=== PATIENT | female | born 1985 | race Caucasian/White ===

== ENCOUNTER 2016-10-24 22:56 | Emergency (ER) | payer MEDICAID ==
[~2016-10-24] VITALS: Ht 162.6 cm; Wt 72.0 kg
[~2016-10-24 22:56] MED LIST: IBUP800T23 PO; ROBA750T PO
[2016-10-24 22:58] VITALS: BP 139/76; PULSE 97; RESP 16; TEMP 98; O2SAT 99
--- NOTE | 2016-10-24 23:15 | PD ---
HPI . Sunburn Chief Complaint: Skin Problem Time Seen by Provider: 23:08 Travel History International Travel<30 days: No Contact w/Intl Traveler<30days: No Traveled to known affect area: No History of Present Illness HPI Patient presents with sunburn on her back. She rates her pain as 10/10. Pain has been unrelieved by aloe gel and cool compresses. PFSH Past Medical History Anemia: Yes Asthma: Yes Depression: Yes Cardiovascular Problems: Yes (ANEMIC) Diminished Hearing: No Immunizations Current: Yes Tetanus Vaccination: Unknown Influenza Vaccination: Yes ?: Not LMP: 10/10/16 : 2 Para: 2 Tubal Ligation: Yes Past Surgical History Appendectomy: Yes (04/2014) Section: Yes (X 2) Gynecologic Surgery: Yes (LEEP) Social History Alcohol Use: No Tobacco Use: Yes (1/2 PPD) Substance Use: No Allergies-Medications (Allergen,Severity, Reaction): Coded Allergies: No Known Allergies (Unverified , 10/24/16) Reported Meds & Prescriptions Reported Meds & Active Scripts Active No Active Prescriptions or Reported Medications Review of Systems Except as stated in HPI: all other systems reviewed are Neg Musculoskeletal: Positive: Pain (in her left low back) Skin: Positive Other (sunburn) Physical Exam Narrative GENERAL: Awake and alert and in no acute distress. SKIN: Warm and dry. She has some redness and of her back. There is no blistering. There is no necrotic skin. HEAD: Atraumatic. Normocephalic. EYES: Pupils equal and round. NECK: Trachea midline. CARDIOVASCULAR: Regular rate and rhythm. RESPIRATORY: No accessory muscle use. MUSCULOSKELETAL: No obvious deformities. No edema. She has tenderness to palpation superior to her left SI joint. NEUROLOGICAL: Awake and alert. No obvious cranial nerve deficits. Motor grossly within normal limits. Normal speech. PSYCHIATRIC: Appropriate mood and affect; insight and judgment normal. Data Data Last Documented VS Vital Signs Date Time Temp Pulse Resp B/P Pulse Ox O2 Delivery O2 Flow Rate FiO2 10/24/16 22:58 98.0 97 16 139/76 99 Room Air MDM Medical Decision Making Medical Screen Exam Complete: Yes Emergency Medical Condition: Yes Differential Diagnosis Differential diagnosis includes simple sunburn, second degree burn, wound infection Narrative Course Patient presents 2 days status post a sunburn to her back. Skin is intact. No evidence of infection. Diagnosis Primary Impression: Sunburn Additional Instructions: Benadryl, 2 every 4 hours if needed for itching. Ibuprofen, 600-800 mg every 6 hours as needed for pain. Cool compresses, showers, tub soaks. Continue aloe gel. Hydrocortisone mixed with lotion is sometimes helpful when it starts itching. Scripts No Active Prescriptions or Reported Meds Disposition: 01 DISCHARGE HOME Condition: Stable Nemo Puente MD October 24, 2016 23:15
== END 2016-10-24 23:25 | disposition home or self-care (01) ==
LOC: NEPD 22:56
DX: L55.9 Sunburn, unspecified (principal); F17.210 Nicotine dependence, cigarettes, uncomplicated
CPT/HCPCS: 99282

== ENCOUNTER 2016-10-31 18:51 | Emergency (ER) | payer MEDICAID, OTHER ==
[~2016-10-31] VITALS: Ht 157.5 cm; Wt 81.1 kg
[2016-10-31 18:58] VITALS: BP 114/74; PULSE 85; RESP 16; TEMP 98.3; O2SAT 99
[2016-10-31] MEDS ORDERED: ROBA500T PO (19:54)
[2016-10-31] MEDS ORDERED: IBUP800T23 PO (19:54)
--- NOTE | 2016-10-31 19:55 | PD ---
HPI Chief Complaint: Pain: Acute or Chronic Time Seen by Provider: 19:25 Travel History International Travel<30 days: No Contact w/Intl Traveler<30days: No Traveled to known affect area: No History of Present Illness HPI 30-year-old female presents emergency department for right-sided lower back pain for one month. Patient denies injury or trauma. She reports the pain as being spasming in nature, nonradiating, worse with movement and relieved with rest 6 out of 10 severity. She denies lower extremity weakness, incontinence, fever, chills, abdominal pain, urinary frequency/urgency/dysuria. He denies any past medical history. She reports that she went to a chiropractor for this pain and was adjusted and had little relief. [facility] Past Medical History Medical History: Denies Significant Hx Anemia: Yes Asthma: Yes Depression: Yes Cardiovascular Problems: Yes (ANEMIC) Diminished Hearing: No Immunizations Current: Yes Tetanus Vaccination: > 5 Years Influenza Vaccination: No ?: Not LMP: OCTOBER 10 : 2 Para: 2 Tubal Ligation: Yes Past Surgical History Appendectomy: Yes (04/2014) Section: Yes (X 2) Gynecologic Surgery: Yes (LEEP) Social History Alcohol Use: No Tobacco Use: Yes (/ PPD) Substance Use: No Allergies-Medications (Allergen,Severity, Reaction): Coded Allergies: No Known Allergies (Unverified , 10/31/16) Reported Meds & Prescriptions Reported Meds & Active Scripts Active No Active Prescriptions or Reported Medications Review of Systems Except as stated in HPI: all other systems reviewed are Neg Physical Exam Narrative GENERAL: Alert, well-nourished well-appearing female. In no acute distress SKIN: Focused skin assessment warm/dry. HEAD: Atraumatic. Normocephalic. EYES: Pupils equal and round. No scleral icterus. No injection or drainage. ENT: No nasal bleeding or discharge. Mucous membranes pink and moist. NECK: Trachea midline. No JVD. CARDIOVASCULAR: Regular rate and rhythm. No murmur appreciated. RESPIRATORY: No accessory muscle use. Clear to auscultation. Breath sounds equal bilaterally. GASTROINTESTINAL: Abdomen soft, non-tender, nondistended. Hepatic and splenic margins not palpable. MUSCULOSKELETAL: No obvious deformities. No clubbing. No cyanosis. No edema. 2+ DTRs and lower extremities. Normal dorsi flexion and plantarflexion. BACK: No midline spine tenderness. Muscle spasm and tenderness of left sided paraspinous muscles in the lumbar region. NEUROLOGICAL: Awake and alert. No obvious cranial nerve deficits. Motor grossly within normal limits. Normal speech. PSYCHIATRIC: Appropriate mood and affect; insight and judgment normal. Data Data Last Documented VS Vital Signs Date Time Temp Pulse Resp B/P Pulse Ox O2 Delivery O2 Flow Rate FiO2 10/31/16 19:17 20 10/31/16 18:58 98.3 85 114/74 99 MDM Medical Decision Making Medical Screen Exam Complete: Yes Emergency Medical Condition: Yes Differential Diagnosis Lumbar sprain, herniated disc, paraspinous muscle spasms Narrative Course 30-year-old female presents emergency department for evaluation of left low back pain 1 month. She denies injury or trauma. She denies numbness tingling or lower extremities, incontinence, fever or chills, urinary . Her physical exam is consistent with a lumbar strain she has paraspinous muscle spasming on the left lumbar region. Diagnosis Primary Impression: Lumbar strain Qualified Code: S39.012A - Lumbar strain, initial encounter Referrals: Primary Care Physician Patient Instructions: General Instructions, Low Back Strain (ED) Scripts Methocarbamol (Robaxin)500 Mg [id number] Mg PO TID PRN (MUSCLE SPASM) #12 TAB Prov:Karly Mills 10/31/16 Ibuprofen 800 Mg [id number] Mg PO Q8H PRN (Pain/Inflammation) #30 TAB Prov:Karly Mills 10/31/16 Disposition: 01 DISCHARGE HOME Condition: Stable Karly Mills October 31, 2016 19:55
== END 2016-10-31 19:59 | disposition home or self-care (01) ==
LOC: PHEFT 18:51
DX: S39.012A Strain of muscle, fascia and tendon of lower back, initial encounter (principal); F17.200 Nicotine dependence, unspecified, uncomplicated; D64.9 Anemia, unspecified; J45.909 Unspecified asthma, uncomplicated; F32.9 Major depressive disorder, single episode, unspecified; X58.XXXA Exposure to other specified factors, initial encounter
CPT/HCPCS: 99283

== ENCOUNTER 2016-12-04 17:08 | Emergency (ER) | payer MEDICAID ==
[~2016-12-04] VITALS: Ht 162.6 cm; Wt 77.5 kg
[~2016-12-04 17:08] MED LIST changes: +ROBA500T PO; -ROBA750T PO
[2016-12-04 17:23] VITALS: BP 130/59; PULSE 72; RESP 18; TEMP 98.4; O2SAT 100
[2016-12-04 18:26] LABS: BASOPHIL # 0.1 TH/MM3 (0-0.2); EOSINOPHIL # 0.4 TH/MM3 (0-0.4); EOSINOPHIL % 4.4 % (0.0-4.0); HEMATOCRIT 32.6 % (35.0-46.0); HEMO FLAGS DIFF FINAL; LYMPH % 27.5 % (9.0-44.0); LYMPHOCYTE # 2.5 TH/MM3 (1.0-4.8); MEAN CELL VOLUME 75.8 FL (80.0-100.0); MEAN CORPUSCULAR HEMOGLOBIN 23.8 PG (27.0-34.0); MEAN CORPUSCULAR HGB CONC 31.4 % (32.0-36.0); MONO % 11.4 % (0.0-8.0); NEUT % 55.7 % (16.0-70.0); PLATELET COUNT 328 TH/MM3 (150-450); RED CELL DISTRIBUTION WIDTH 15.9 % (11.6-17.2); WHITE BLOOD COUNT 9.1 TH/MM3 (4.0-11.0)
--- NOTE | 2016-12-04 18:26 | PD ---
HPI Chief Complaint: Numbness/Tingling Time Seen by Provider: 17:28 Travel History International Travel<30 days: No Contact w/Intl Traveler<30days: No Traveled to known affect area: No History of Present Illness HPI 31-year-old female came to the emergency room with history of right sided tingling and numbness since 8:30 this morning. Patient says that her right upper extremity and right lower extremity feel tingling, numb and heavy. She has never had this before. No history of headache, syncopal episode. No history of chest pain. She is otherwise a healthy person. Vital signs are stable. She does not appear to be in any significant distress. She is here with her and 2 children. Upon asking she said there is no way she could be since she has had tubal ligation. She is a smoker. FORMERLY [facility], 1928–[facility] Past Medical History Narrative Medical List of her past medical, surgical, social and family history was reviewed from the nursing note. Anemia: Yes Asthma: Yes Depression: Yes Cardiovascular Problems: Yes (ANEMIC) Diminished Hearing: No Respiratory: Yes (ASTHMA) Immunizations Current: Yes Tetanus Vaccination: > 5 Years ?: Not LMP: 11/10/2016 : 2 Para: 2 Tubal Ligation: Yes Past Surgical History Appendectomy: Yes (04/2014) Section: Yes (X 2) Gynecologic Surgery: Yes (LEEP) Social History Alcohol Use: No Tobacco Use: Yes (1/2 PPD) Substance Use: No Allergies-Medications (Allergen,Severity, Reaction): Coded Allergies: No Known Allergies (Unverified , 12/04/16) Comments No known drug allergies. Reported Meds & Prescriptions Reported Meds & Active Scripts Active Robaxin (Methocarbamol) 500 Mg Tab 500 Mg PO TID PRN Ibuprofen 800 Mg Tab 800 Mg PO Q8H PRN Narrative Medication List of her home medications reviewed from the nursing note. Review of Systems Except as stated in HPI: all other systems reviewed are Neg Physical Exam Narrative GENERAL: Awake, alert, no obvious distress SKIN: Focused skin assessment warm/dry. HEAD: Atraumatic. Normocephalic. EYES: Pupils equal and round. No scleral icterus. No injection or drainage. ENT: No nasal bleeding or discharge. Mucous membranes pink and moist. NECK: Trachea midline. No JVD. CARDIOVASCULAR: Regular rate and rhythm. No murmur appreciated. RESPIRATORY: No accessory muscle use. Clear to auscultation. Breath sounds equal bilaterally. GASTROINTESTINAL: Abdomen soft, non-tender, nondistended. Hepatic and splenic margins not palpable. MUSCULOSKELETAL: No obvious deformities. No clubbing. No cyanosis. No edema. NEUROLOGICAL: Awake and alert. No obvious cranial nerve deficits. Motor grossly within normal limits. Normal speech. NIH stroke score is 0 PSYCHIATRIC: Appropriate mood and affect; insight and judgment normal. Data Data Last Documented VS Orders Ct Brain W/O Iv Contrast(Rout) (12/04/16 ) Mri Brain W&W/O Contrast (12/04/16 ) Mri C Spine W&W/O Contrast (12/04/16 ) Mra Brain W/O Contrast (Cow) (12/04/16 ) Complete Blood Count With Diff (12/04/16 17:33) Basic Metabolic Panel (Bmp) (12/04/16 17:33) Gadodiamide Pf Inj (Omniscan Pf Inj) (12/04/16 19:59) Labs MDM Medical Decision Making Medical Screen Exam Complete: Yes Emergency Medical Condition: Yes Medical Record Reviewed: Yes Differential Diagnosis CVA, spinal CVA, conversion disorder Narrative Course 6:26 PM I ordered a CT scan of her head and an MRI and MRA. Awaiting for the images to be done and resulted. 6:42 PM the test results of back and within acceptable limits. Awaiting for the imaging to be completed. Case will be signed over to the oncoming ER physician at 7 PM. Procedures EKG Prior to Arrival: Yadi Macedo MD Dec 04, 2016 18:26 Mean Corpuscular Volume 75.8 FL Mean Corpuscular Hemoglobin 23.8 PG Mean Corpuscular Hemoglobin 31.4 % Concent Red Cell Distribution Width 15.9 % Platelet Count 328 TH/MM3 Mean Platelet Volume 7.4 FL Neutrophils (%) (Auto) 55.7 % Lymphocytes (%) (Auto) 27.5 % Monocytes (%) (Auto) 11.4 % Eosinophils (%) (Auto) 4.4 % Basophils (%) (Auto) 1.0 % Neutrophils # (Auto) 5.0 TH/MM3 Lymphocytes # (Auto) 2.5 TH/MM3 Monocytes # (Auto) 1.0 TH/MM3 Eosinophils # (Auto) 0.4 TH/MM3 Basophils # (Auto) 0.1 TH/MM3 CBC Comment DIFF FINAL Differential Comment Sodium Level 141 MEQ/L Potassium Level 4.2 MEQ/L Chloride Level 109 MEQ/L Carbon Dioxide Level 27.6 MEQ/L Anion Gap 4 MEQ/L Blood Urea Nitrogen 13 MG/DL Creatinine 0.79 MG/DL Estimat Glomerular Filtration 84 ML/MIN Rate Random Glucose 84 MG/DL Calcium Level 8.6 MG/DL MDM Medical Decision Making Medical Screen Exam Complete: Yes Emergency Medical Condition: Yes Medical Record Reviewed: Yes Differential Diagnosis CVA, spinal CVA, conversion disorder Narrative Course 6:26 PM I ordered a CT scan of her head and an MRI and MRA. Awaiting for the images to be done and resulted. 6:42 PM the test results of back and within acceptable limits. Awaiting for the imaging to be completed. Case will be signed over to the oncoming ER physician at 7 PM. Procedures EKG Prior to Arrival: No Yadi Marley MD Dec 04, 2016 18:26 Yadi Marley MD Dec 04, 2016 18:26
[2016-12-04 18:40] LABS: BICARBONATE 27.6 MEQ/L (21.0-32.0); POTASSIUM 4.2 MEQ/L (3.5-5.1)
--- NOTE | 2016-12-04 19:14 | RADRPT ---
EXAM DATE/TIME: 12/04/2016 18:15 [facility] COMPARISON: CT BRAIN W/O CONTRAST, May 18, 2016, 18:10. INDICATIONS : Tingling left and foot with swelling. RADIATION DOSE: 31.74 CTDIvol (mGy) MEDICAL HISTORY : Cardiovascular disease. SURGICAL HISTORY : Appendectomy. Tubal ligation. ENCOUNTER: Initial ACUITY: 1 day PAIN SCALE: 0/10 LOCATION: cranial TECHNIQUE: Multiple contiguous axial images were obtained of the head. Using automated exposure control and adj ustment of the mA and/or kV according to patient size, radiation dose was kept as low as reasonably a chievable to obtain optimal diagnostic quality images. DICOM format image data is available electro nically for review and comparison. FINDINGS: CEREBRUM: The ventricles are normal for age. No evidence of midline shift, mass lesion, hemorrhage or acute in farction. No extra-axial fluid collections are seen. POSTERIOR FOSSA: The cerebellum and brainstem are intact. The 4th ventricle is midline. The cerebellopontine angle i s unremarkable. EXTRACRANIAL: The visualized portion of the orbits is intact. SKULL: The calvaria is intact. No evidence of skull fracture. CONCLUSION: No acute findings. Negative exam. Steven Staley MD on December 04, 2016 at 19:10 Board Certified Radiologist. This report was verified electronically.
--- NOTE | 2016-12-04 19:40 | PD ---
Physical Exam Narrative General: The patient is a well-developed well-nourished female in no acute distress. Head and Neck exam: Head is normocephalic atraumatic. Eyes: EOMI, pupils are equal round and reactive to light. Nose: Midline septum with pink mucous membranes Mouth: Dentition unremarkable. Moist mucus membranes. Posterior oropharynx is not erythematous. No tonsillar hypertrophy. Uvula midline. Airway patent. Neck: No palpable lymphadenopathy. No nuchal rigidity. No thyromegaly. Cardiovascular: Regular rate and rhythm without murmurs, gallops, or rubs. No pulse deficit to the extremities. Lungs: Clear to auscultation bilaterally. No wheezes, rhonchi, or rales. Abdomen: Soft, without tenderness to palpation in all 4 quadrants of the abdomen. No guarding, rebound, or rigidity. Negative [place] sign. Extremities: No clubbing, cyanosis, or edema. 2+ pulses in all 4 extremities. Back: No spinous process tenderness to palpation. No costovertebral angle tenderness to palpation. Neurologic Exam: Cranial nerves 2-12 were intact on exam. Strength is 5/5 in all 4 extremities. No sensory deficits noted. Skin Exam: No rash noted. Intact skin that is warm and dry. Data Data Last Documented VS Vital Signs Date Time Temp Pulse Resp B/P Pulse Ox O2 Delivery O2 Flow Rate FiO2 12/04/16 20:37 75 16 119/83 99 Room Air 12/04/16 17:[address] Brain W/O Iv Contrast(Rout) (12/04/16 ) Mri Brain W&W/O Contrast (12/04/16 ) Mri C Spine W&W/O Contrast (12/04/16 ) Mra Brain W/O Contrast (Cow) (12/04/16 ) Complete Blood Count With Diff (12/04/16 17:33) Basic Metabolic Panel (Bmp) (12/04/16 17:33) Gadodiamide Pf Inj (Omniscan Pf Inj) (12/04/16 19:59) Labs Laboratory Tests Test 12/04/16 17:45 White Blood Count 9.1 TH/MM3 Red Blood Count 4.30 MIL/MM3 Hemoglobin 10.2 GM/DL Hematocrit 32.6 % Mean Corpuscular Volume 75.8 FL Mean Corpuscular Hemoglobin 23.8 PG Mean Corpuscular Hemoglobin 31.4 % Concent Red Cell Distribution Width 15.9 % Platelet Count 328 TH/MM3 Mean Platelet Volume 7.4 FL Neutrophils (%) (Auto) 55.7 % Lymphocytes (%) (Auto) 27.5 % Monocytes (%) (Auto) 11.4 % Eosinophils (%) (Auto) 4.4 % Basophils (%) (Auto) 1.0 % Neutrophils # (Auto) 5.0 TH/MM3 Lymphocytes # (Auto) 2.5 TH/MM3 Monocytes # (Auto) 1.0 TH/MM3 Eosinophils # (Auto) 0.4 TH/MM3 Basophils # (Auto) 0.1 TH/MM3 CBC Comment DIFF FINAL Differential Comment Sodium Level 141 MEQ/L Potassium Level 4.2 MEQ/L Chloride Level 109 MEQ/L Carbon Dioxide Level 27.6 MEQ/L Anion Gap 4 MEQ/L Blood Urea Nitrogen 13 MG/DL Creatinine 0.79 MG/DL Estimat Glomerular Filtration 84 ML/MIN Rate Random Glucose 84 MG/DL Calcium Level 8.6 MG/DL [facility] Medical Record Reviewed: Yes Supervised Visit with GRACIELA: No Interpretation(s) Last Impressions Head Magnetic Resonance Angiography 12/04/16 Signed Impressions: Service Date/Time: Sunday, December 04, 2016 19:27 - CONCLUSION: Negative MRA of the [place] of [place]. Steven Staley MD Head CT 12/04/16 Signed Impressions: Service Date/Time: Sunday, December 04, 2016 18:15 - CONCLUSION: No acute findings. Negative exam. Steven Staley MD Cervical Spine MRI 12/04/16 Signed Impressions: Service Date/Time: Sunday, December 04, 2016 19:27 - CONCLUSION: Negative MRI of the cervical spine with and without contrast. Steven Staley MD Brain MRI 12/04/16 Signed Impressions: Service Date/Time: Sunday, December 04, 2016 19:27 - CONCLUSION: Negative MRI of the brain with and without contrast. Steven Staley MD Differential Diagnosis Cerebrovascular accident, versus multiple sclerosis, versus neuropathy, versus radiculopathy, versus intracranial mass Narrative Course During the course of the patients emergency department visit, the patients history, examination, and differential diagnosis were reviewed with the patient. The patient had IV access obtained and blood work sent for analysis. The patient was placed on a quality assurance monitor with oximetry and blood pressure monitoring. The patient was initially evaluated by Dr. Marley. Please see her complete history and physical. The patients laboratory studies were reviewed and remarkable for a CBC that shows a white count of 9.1, hemoglobin 10.2, platelets 328 with monocytes 11.4, basic metabolic profile is remarkable for chloride of 109, anion gap 4, GFR of 84, CT scan of the brain shows no acute abnormality. MRI of the brain is pending. The patient's MRA of the brain shows no acute abnormality. MRI of the brain showed no acute abnormality with and without contrast. Cervical spine MRI showed a negative MRI of the cervical spine with and without contrast. The patient is instructed to follow-up with a neurologist as an outpatient for further evaluation for possible peripheral neuropathy. The patient is resting comfortably and feels better, is alert and in no distress. The patients results and examination findings were discussed with the patient. The repeat examination is unremarkable and benign. The history, exam, diagnostic testing, and current condition do not suggest any significant pathology to warrant further testing, continued ED treatment, admission, or surgical evaluation at this point. The vital signs have been stable. The patient does not have uncontrollable pain, intractable vomiting, or other significant symptoms. The patient's condition is stable and appropriate for discharge. The patient will pursue further outpatient evaluation with a primary care physician or other designated or consulting physician as indicated in the discharge instructions. The patient expressed understanding and was agreeable with this plan. Diagnosis Primary Impression: Paresthesias Referrals: Zack Man MD call for appointment Patient Instructions: General Instructions, Paresthesia (ED) Med/Other Pt SpecificInfo: No Change to Meds Disposition: 01 DISCHARGE HOME Condition: Stable Eloina Huddleston MD Dec 04, 2016 19:40
[2016-12-04] MEDS ORDERED: GADODIAMIDE PF 287 MG/ML 5 ML VIAL (for RAD MRI) IV ONE (19:59)
--- NOTE | 2016-12-04 20:02 | RADRPT ---
EXAM DATE/TIME: 12/04/2016 19:27 [facility] COMPARISON: No previous studies available for comparison. INDICATIONS : CVA. MEDICAL HISTORY : None. SURGICAL HISTORY : Appendectomy. section. Tubal ligation. ENCOUNTER: Initial ACUITY: 1 day PAIN SCORE: 2/10 LOCATION: Right side swelling Please note a normal MRA of the brain does not entirely exclude the possibility of a small aneurysm, nor the possibility of distal intracranial vessel disease. TECHNIQUE: 3D time of flight MRA was performed. Source images, multiplanar STS MIP, and 3D volume MIP reconstru ctions were reviewed. FINDINGS: There is excellent visualization of the major intracranial arteries out to the second-order branch ve ssels. There is no evidence for aneurysm, vessel truncation or stenosis, and no evidence for vascula r malformation. Flow is seen in the anterior communicating artery and the left PCOM. CONCLUSION: Negative MRA of the [place] of [place]. Steven Staley MD on December 04, 2016 at 19:58 Board Certified Radiologist. This report was verified electronically.
--- NOTE | 2016-12-04 20:36 | RADRPT ---
EXAM DATE/TIME: 12/04/2016 19:27 [facility] COMPARISON: No previous studies available for comparison. INDICATIONS : CVA & MS CONTRAST: 15 cc Omniscan (gadodiamide) IV MEDICAL HISTORY : None. SURGICAL HISTORY : Tubal ligation. section. Appendectomy. ENCOUNTER: Initial ACUITY: 1 day PAIN SCORE: 2/10 LOCATION: Right side swelling TECHNIQUE: Multiplanar, multisequence MRI of the brain was performed both prior to and following the administrat ion of paramagnetic contrast. FINDINGS: CEREBRUM: The ventricles are normal for age. No evidence of midline shift, mass lesion, hemorrhage or acute in farction. No extraaxial fluid collections are seen. The pituitary gland and suprasellar cistern are normal in configuration. WHITE MATTER: No significant signal abnormalities are seen in the white matter. POSTERIOR FOSSA: The cerebellum and brainstem are intact. The 4th ventricle is midline. The cerebellopontine angle is unremarkable. The cerebellar tonsils are normal in position. DIFFUSION IMAGING: No focal areas of restricted diffusion are seen. No evidence of acute infarction. EXTRACRANIAL: The visualized portions of the orbits and paranasal sinuses are unremarkable. POST-CONTRAST: No abnormal areas of parenchymal or dural enhancement. No evidence of blood-brain barrier breakdown. CONCLUSION: Negative MRI of the brain with and without contrast. Steven Staley MD on December 04, 2016 at 20:27 Board Certified Radiologist. This report was verified electronically.
[2016-12-04 20:37] VITALS: BP 119/83; PULSE 75; RESP 16; O2SAT 99
--- NOTE | 2016-12-04 20:37 | RADRPT ---
EXAM DATE/TIME: 12/04/2016 19:27 [facility] COMPARISON: No previous studies available for comparison. INDICATIONS : MS CONTRAST: 15 cc Omniscan (gadodiamide) IV MEDICAL HISTORY : None. SURGICAL HISTORY : Appendectomy. section. Tubal ligation. ENCOUNTER: Initial ACUITY: 1 day PAIN SCORE: 2/10 LOCATION: Right side swelling TECHNIQUE: Multiplanar, multisequence MRI examination of the cervical spine was performed. FINDINGS: VERTEBRAE: Normal vertebral body height. Homogeneous marrow signal. ALIGNMENT: No evidence of subluxation. CORD: Normal configuration and signal. POST FOSSA: The cerebellar tonsils are normal in position. POST-CONTRAST: No abnormal areas of enhancement are seen in the cervical cord or epidural space. C2-C3: The thecal sac has a normal configuration. There is no evidence of disc herniation or spinal canal stenosis. The neural foramina are patent bilaterally. C3-C4: The thecal sac has a normal configuration. There is no evidence of disc herniation or spinal canal s tenosis. The neural foramina are patent bilaterally. C4-C5: The thecal sac has a normal configuration. There is no evidence of disc herniation or spinal canal s tenosis. The neural foramina are patent bilaterally. C5-C6: The thecal sac has a normal configuration. There is no evidence of disc herniation or spinal canal s tenosis. The neural foramina are patent bilaterally. C6-C7: The thecal sac has a normal configuration. There is no evidence of disc herniation or spinal canal s tenosis. The neural foramina are patent bilaterally. C7-T1: The thecal sac has a normal configuration. There is no evidence of disc herniation or spinal canal s tenosis. The neural foramina are patent bilaterally. CONCLUSION: Negative MRI of the cervical spine with and without contrast. Steven Staley MD on December 04, 2016 at 20:33 Board Certified Radiologist. This report was verified electronically.
== END 2016-12-04 21:06 | disposition home or self-care (01) ==
LOC: NEPC 17:08
DX: R20.2 Paresthesia of skin (principal); F17.210 Nicotine dependence, cigarettes, uncomplicated
CPT/HCPCS: 70450; 70544; 70553; 72156; 80048; 85025; 99284; A9579

== ENCOUNTER 2017-02-17 14:33 | Emergency (ER) | payer MEDICAID ==
[~2017-02-17] VITALS: Ht 157.5 cm; Wt 80.0 kg
[2017-02-17 14:40] VITALS: BP 122/55; PULSE 77; RESP 16; TEMP 98.3; O2SAT 96
[2017-02-17] MEDS ORDERED: VENTAER INH (18:09)
[2017-02-17] MEDS ORDERED: IBUP800T23 PO (18:27)
[2017-02-17] MEDS ORDERED: ROBA500T PO (18:27)
[2017-02-17] MEDS ORDERED: TRAM50TA PO (18:27)
--- NOTE | 2017-02-17 18:32 | PD ---
HPI Chief Complaint: Musculoskeletal Complaint Time Seen by Provider: 18:22 Travel History International Travel<30 days: No Contact w/Intl Traveler<30days: No Traveled to known affect area: No History of Present Illness HPI 31-year-old female presents to the emergency Department with left shoulder pain. Patient states she was swimming in the ocean yesterday and injured her left shoulder with mild discomfort yesterday. Patient states over the evening hours it got progressively worse and when she woke up this morning she could barely move her left shoulder. Patient went to work, but had to leave early secondary to increasing pain. Pain is currently an 8 out of 10. Pain is worse with movement. She denies numbness, tingling, or weakness. She has no other injury. She has no known drug allergies. PFSH Past Medical History Anemia: Yes Asthma: Yes Depression: Yes Cardiovascular Problems: Yes (ANEMIC) Diminished Hearing: No Respiratory: Yes (ASTHMA) Immunizations Current: Yes Tetanus Vaccination: Unknown Influenza Vaccination: No ?: Not LMP: 02/05/2017 : 2 Para: 2 Tubal Ligation: Yes Past Surgical History Appendectomy: Yes (04/2014) Section: Yes (X 2) Gynecologic Surgery: Yes (LEEP) Social History Alcohol Use: No Tobacco Use: Yes (/ PPD) Substance Use: No Allergies-Medications (Allergen,Severity, Reaction): Coded Allergies: No Known Allergies (Unverified , 02/17/17) Reported Meds & Prescriptions Reported Meds & Active Scripts Active Tramadol (Tramadol HCl) 50 Mg Tab 50 Mg PO Q6H PRN Ibuprofen 800 Mg Tab 800 Mg PO Q8H PRN Robaxin (Methocarbamol) 500 Mg Tab 500 Mg PO TID PRN Reported Ventolin Hfa 18 GM Inh (Albuterol Sulfate) 90 Mcg/Act Aer 2 Puff INH Q4-6H PRN Review of Systems Except as stated in HPI: all other systems reviewed are Neg General / Constitutional: No: Fever Eyes: No: Visual changes HENT: No: Headaches Cardiovascular: No: Chest Pain or Discomfort Respiratory: No: Shortness of Breath Gastrointestinal: No: Abdominal Pain Genitourinary: No: Dysuria Musculoskeletal: Positive: Myalgias, Arthralgias, Limited ROM, Pain (see history of present illness.) Skin: No Rash Neurologic: No: Weakness Psychiatric: No: Depression Endocrine: No: Polydipsia Hematologic/Lymphatic: No: Easy Bruising Physical Exam Narrative GENERAL: Patient appears in mild to moderate distress. SKIN: Warm and dry. Normal color. Normal turgor. No signs of trauma. No rash. HEAD: Atraumatic. Normocephalic. EYES: Pupils equal and round. No scleral icterus. No injection or drainage. ENT: No nasal bleeding or discharge. Mucous membranes pink and moist. Pharynx is clear. Airway is patent NECK: Trachea midline. No bony step-off or tenderness. Range of motion is fully supple. CARDIOVASCULAR: Regular rate and rhythm. RESPIRATORY: No accessory muscle use. Clear to auscultation. Breath sounds equal bilaterally. GASTROINTESTINAL: Abdomen soft, non-tender, nondistended. Hepatic and splenic margins not palpable. MUSCULOSKELETAL: Extremities without clubbing, cyanosis, or edema. No obvious deformities. Patient has soft tissue tenderness along the left trapezius and posterior and anterior deltoid region. Motion is limited secondary to pain. There is no obvious laxity or weakness. NEUROLOGICAL: Awake and alert. No obvious cranial nerve deficits. Motor grossly within normal limits. Five out of 5 muscle strength in the arms and legs. Normal speech. PSYCHIATRIC: Appropriate mood and affect; insight and judgment normal. Data Data Last Documented VS Vital Signs Date Time Temp Pulse Resp B/P (MAP) Pulse Ox O2 Delivery O2 Flow Rate FiO2 02/17/17 14:40 98.3 77 16 122/55 (77) 96 Room Air MDM Medical Decision Making Medical Screen Exam Complete: Yes Emergency Medical Condition: Yes Differential Diagnosis Left shoulder strain. Tendinitis. Bursitis. Muscle spasm. Narrative Course Patient is treated with Robaxin 500 mg 3 times a day #12. Patient is given ibuprofen 800 mg 3 times daily with food #30. Patient is given tramadol 50 mg one every 6 hours when necessary #12. She is to use heat followed by ice and gentle stretching as discussed. Work note is given for the next 2 days. Patient should follow up if symptoms are not improving or worsening as needed. Diagnosis Primary Impression: Strain of left shoulder Qualified Codes: S46.912A - Strain of unspecified muscle, fascia and tendon at shoulder and upper arm level, left arm, initial encounter Referrals: Primary Care Physician Patient Instructions: Exercises for Internal and External Shoulder Rotation (ED ), Exercises for Shoulder Abduction and Adduction (ED), General Instructions, Rotator Cuff Injury (ED), Shoulder Sprain (ED) Departure Forms: Work Release Enter return to work date: Feb 20, 2017 Additional Instructions: Patient is treated with Robaxin 500 mg 3 times a day #12. Patient is given ibuprofen 800 mg 3 times daily with food #30. Patient is given tramadol 50 mg one every 6 hours when necessary #12. She is to use heat followed by ice and gentle stretching as discussed. Work note is given for the next 2 days. Patient should follow up if symptoms are not improving or worsening as needed. Scripts Tramadol (Tramadol) 50 Mg Tab 50 MG PO Q6H Y for PAIN, #12 TAB 0 Refills Prov: Mirza Lucero MD 02/17/17 Ibuprofen (Ibuprofen) 800 Mg Tab 800 MG PO Q8H Y for Pain/Inflammation, #30 TAB Prov: Mirza Lucero MD 02/17/17 Methocarbamol (Robaxin) 500 Mg Tab 500 MG PO TID Y for MUSCLE SPASM, #12 TAB Prov: Mirza Lucero MD 02/17/17 Disposition: 01 DISCHARGE HOME Condition: Stable Scott Cummins Feb 17, 2017 18:32
== END 2017-02-17 18:44 | disposition home or self-care (01) ==
LOC: PHED 14:33 → PHEFT 18:44
DX: S46.912A Strain of unspecified muscle, fascia and tendon at shoulder and upper arm level, left arm, initial encounter (principal); X50.9XXA Other and unspecified overexertion or strenuous movements or postures, initial encounter
CPT/HCPCS: 99284

== ENCOUNTER 2017-02-21 20:10 | Emergency (ER) | payer OTHER, MEDICAID ==
[~2017-02-21 20:10] MED LIST changes: +TRAM50TA PO; +VENTAER INH
[2017-02-21 20:11] VITALS: BP 137/77; PULSE 97; RESP 16; TEMP 98.3; O2SAT 96
--- NOTE | 2017-02-21 20:30 | PD ---
Physical Exam Date Seen by Provider: Feb 21, 2017 Time Seen by Provider: 20:28 Narrative 31-year-old [id number] white female presents to emergency department for evaluation of a grease burn to her right hand which occurred earlier this evening at work. She states the pain is moderate to severe. She has not tenderness in 5 years. Data Data Last Documented VS Vital Signs Date Time Temp Pulse Resp B/P (MAP) Pulse Ox O2 Delivery O2 Flow Rate FiO2 02/21/17 20:11 98.3 97 16 137/77 (97) 96 Room Air [facility] Medical Record Reviewed: No Supervised Visit with GRACIELA: Dhaval Fair Feb 21, 2017 20:30
[2017-02-21] MEDS ORDERED: SILV1CRE20 TOPICAL (20:40)
[2017-02-21] MEDS ORDERED: HYDR-3533 PO (20:40)
[2017-02-21] MEDS ORDERED: IBUP800T23 PO (20:40)
--- NOTE | 2017-02-21 20:42 | PD ---
HPI Chief Complaint: Burn Time Seen by Provider: 20:34 Travel History International Travel<30 days: No Contact w/Intl Traveler<30days: No Traveled to known affect area: No History of Present Illness HPI 31-year-old female presents to emergency department for evaluation of a burn sustained to her right hand. Patient states she was at work, cleaning the greaser when she got her right hand into it. She reports immediate pain. Currently it is a burning sensation, moderate to severe. Denies any alterations in sensation or limitations in range of motion. She is uncertain of her tetanus status. She has no other symptoms to report. PFSH Past Medical History Anemia: Yes Asthma: Yes Depression: Yes Cardiovascular Problems: Yes (ANEMIC) Diminished Hearing: No Respiratory: Yes (ASTHMA) Immunizations Current: Yes ?: Not LMP: 02/09/17 : 2 Para: 2 Tubal Ligation: Yes Past Surgical History Appendectomy: Yes (04/2014) Section: Yes (X 2) Gynecologic Surgery: Yes (LEEP) Social History Alcohol Use: No Tobacco Use: Yes (1/2 PPD) Substance Use: No Allergies-Medications (Allergen,Severity, Reaction): Coded Allergies: No Known Allergies (Unverified , 02/21/17) Reported Meds & Prescriptions Reported Meds & Active Scripts Active Lortab (Hydrocodone-Acetaminophen) 5-325 Mg Tab 1 Tab PO Q6H PRN Ibuprofen 800 Mg Tab 800 Mg PO Q8H PRN Silvadene Topical (Silver Sulfadiazine) 1 % Cream 1 Applic TOPICAL BID Tramadol (Tramadol HCl) 50 Mg Tab 50 Mg PO Q6H PRN Ibuprofen 800 Mg Tab 800 Mg PO Q8H PRN Robaxin (Methocarbamol) 500 Mg Tab 500 Mg PO TID PRN Reported Ventolin Hfa 18 GM Inh (Albuterol Sulfate) 90 Mcg/Act Aer 2 Puff INH Q4-6H PRN Review of Systems Except as stated in HPI: all other systems reviewed are Neg Physical Exam Narrative GENERAL: Well-nourished, well-developed female patient in no acute distress SKIN: Focused skin assessment warm/dry. Erythema on the dorsal aspect of the right hand from the third digit laterally extending up to the dorsal lateral aspect of the forearm. There is mild blistering on the forearm. The skin is blanchable. This is about 1 1/2% TBSA. HEAD: Normocephalic. EYES: No scleral icterus. No injection or drainage. NECK: Supple, trachea midline. No JVD or lymphadenopathy. CARDIOVASCULAR: Regular rate and rhythm without murmurs, gallops, or rubs. RESPIRATORY: Breath sounds equal bilaterally. No accessory muscle use. MUSCULOSKELETAL: No cyanosis, or edema. Patient has full flexion and extension of all the digits of the affected hand. Sensation intact distal affected digits. BACK: Nontender without obvious deformity. No CVA tenderness. Data Data Last Documented VS Vital Signs Date Time Temp Pulse Resp B/P (MAP) Pulse Ox O2 Delivery O2 Flow Rate FiO2 02/21/17 20:11 98.3 97 16 137/77 (97) 96 Room Air Orders Orders Tetanus/Diphtheria Tox Adult (Tetanus/Di (02/21/17 20:45) Acetamin-Hydrocod 325-5 Mg ([place] 5-325 (02/21/17 20:45) Ketorolac Inj (Toradol Inj) (02/21/17 20:45) Silver Sulfadia 1% Crm (50 Gm) (Silvaden (02/21/17 20:45) MDM Medical Decision Making Medical Screen Exam Complete: Yes Emergency Medical Condition: Yes Medical Record Reviewed: Yes Differential Diagnosis Superficial burn versus partial-thickness burn versus full-thickness burn versus contact dermatitis versus local reaction Narrative Course 31-year-old female presents to the emergency department for evaluation of a burn sustained to her right upper extremity. Patient is right handed. There are no limitations in range of motion. This is one and a half percent TBSA. Patient is updated on her tetanus. Wound care is complete. She is counseled on care. She agrees to return immediately with any acute worsening symptoms. Diagnosis Primary Impression: Partial thickness burn of hand including fingers Qualified Codes: T23.201A - Burn of second degree of right hand, unspecified site, initial encounter; T23.231A - Burn of second degree of multiple right fingers (nail), not including thumb, initial encounter Referrals: Primary Care Physician Patient Instructions: General Instructions, Second Degree Burn (ED) Additional Instructions: ICE AND ELEVATE TO REDUCE PAIN AND SWELLING DRESSING CHANGES 2 TIMES A DAY PAT DRY; DO NOT WIPE DO NOT POP BLISTERS FOLLOW UP WITH PRIMARY CARE PROVIDER RETURN TO ED WITH ACUTE WORSENING OF SYMPTOMS Med/Other Pt SpecificInfo: Prescription(s) given Scripts Hydrocodone-Acetaminophen (Lortab) 5-325 Mg Tab 1 TAB PO Q6H Y for PAIN GREATER THAN 5, #15 TAB 0 Refills Prov: Yuliya Etienne 02/21/17 Ibuprofen (Ibuprofen) 800 Mg Tab 800 MG PO Q8H Y for PAIN SCALE 1 TO 10, #30 TAB 0 Refills Prov: Yuliya Etienne 02/21/17 Silver Sulfadiazine Topical (Silvadene Topical) 1 % Cream 1 APPLIC TOPICAL BID for Wound Management, #400 GM 0 Refills Prov: Yuliya Etienne 02/21/17 Disposition: 01 DISCHARGE HOME Condition: Stable Yuliya Etienne Feb 21, 2017 20:42
[2017-02-21] MEDS ORDERED: SILVER SULFADIAZINE 1% CR 50 GM JAR TOPICAL ONE (20:45)
[2017-02-21] MEDS ORDERED: KETOROLAC TROMETHAMINE 60 MG/2 ML (IM) VIAL IM ONE (20:45)
[2017-02-21] MEDS ORDERED: ACETAMINOPHEN/HYDROcodone 325 MG/5 MG TAB PO ONE (20:45)
[2017-02-21] MEDS ORDERED: TETANUS/DIPHTHERIA TOXOID ADULT 0.5 ML VIAL IM ONE (20:45)
== END 2017-02-21 21:05 | disposition home or self-care (01) ==
LOC: NEPK 20:10
DX: T23.201A Burn of second degree of right hand, unspecified site, initial encounter (principal); T23.231A Burn of second degree of multiple right fingers (nail), not including thumb, initial encounter; T31.0 Burns involving less than 10% of body surface; X10.2XXA Contact with fats and cooking oils, initial encounter; Y93.89 Activity, other specified; Y99.0 Civilian activity done for income or pay; Z23 Encounter for immunization
CPT/HCPCS: 16020; 90471; 90714; 96372; 99284; J1885

== ENCOUNTER 2017-05-30 01:03 | Emergency (ER) | payer MEDICAID ==
[~2017-05-30] VITALS: Ht 157.5 cm; Wt 79.0 kg
[~2017-05-30 01:03] MED LIST changes: +HYDR-3533 PO; +IBUP1TAB7 PO; -IBUP800T23 PO; +SILV1CRE20 TOPICAL
[2017-05-30 01:05] VITALS: BP 136/79; PULSE 71; RESP 16; TEMP 98; O2SAT 100
[2017-05-30 01:18] VITALS: BP 138/78; PULSE 78; RESP 18; O2SAT 98
[2017-05-30] MEDS ORDERED: SODIUM CHLOR 0.9% 1000 ML INJ 1,000 ML IV ONE (01:42)
[2017-05-30] MEDS ORDERED: SODIUM CHLORIDE 0.9% FLUSH 10 ML FLUSH IVF PRN (01:45)
--- NOTE | 2017-05-30 01:50 | PD ---
HPI Chief Complaint: Dizziness Time Seen by Provider: 01:42 Travel History International Travel<30 days: No Contact w/Intl Traveler<30days: No History of Present Illness HPI So 31 year-old woman presents to the emergency department complaining of dizziness. States she was at work, standing when she gets severe at 7 back pain. From then she began to feel dizzy and lightheaded. She's not had previous similar symptoms. She has pain in her back which takes deep breaths now. She has sort of getting over a cold with cough cold symptoms for past several days. No fevers. No other complaints. History Past Medical History Narrative Medical Asthma Influenza Vaccination: Yes LMP: CURRENT : 2 Para: 2 Social History Alcohol Use: No Tobacco Use: Yes (1/2 PPD) Allergies-Medications (Allergen,Severity, Reaction): Coded Allergies: No Known Allergies (Unverified Adverse Reaction, Unknown, 05/30/17) Reported Meds & Prescriptions Reported Meds & Active Scripts Active Review of Systems Except as stated in HPI: all other systems reviewed are Neg Physical Exam Narrative GENERAL: 31 year-old woman, no acute distress. SKIN: Focused skin assessment warm/dry. HEAD: Atraumatic. Normocephalic. EYES: Pupils equal and round. No scleral icterus. No injection or drainage. ENT: No nasal bleeding or discharge. Mucous membranes pink and moist. NECK: Trachea midline. No JVD. CARDIOVASCULAR: Regular rate and rhythm. No murmur appreciated. RESPIRATORY: No accessory muscle use. Clear to auscultation. Breath sounds equal bilaterally. GASTROINTESTINAL: Abdomen soft, non-tender, nondistended. Hepatic and splenic margins not palpable. MUSCULOSKELETAL: No obvious deformities. Some mid low back tenderness to palpation. PSYCHIATRIC: Appropriate mood and affect; insight and judgment normal. Data Data Last Documented VS Vital Signs Date Time Temp Pulse Resp B/P (MAP) Pulse Ox O2 Delivery O2 Flow Rate FiO2 05/30/17 01:18 78 18 138/78 (98) 98 Room Air 05/30/17 01:05 98.0 Orders Orders Electrocardiogram (05/30/17 01:42) Basic Metabolic Panel (Bmp) (05/30/17 01:42) Ed Urine Pregnancytest Poc (05/30/17 01:42) Complete Blood Count With Diff (05/30/17 01:42) Chest, Single Ap (05/30/17 01:42) Iv Access Insert/Monitor (05/30/17 01:42) Sodium Chloride 0.9% Flush (Ns Flush) (05/30/17 01:45) Sodium Chlor 0.9% 1000 Ml Inj (Ns 1000 M (05/30/17 01:42) Labs Laboratory Tests Test 05/30/17 01:47 White Blood Count 8.6 TH/MM3 Red Blood Count 4.62 MIL/MM3 Hemoglobin 11.6 GM/DL Hematocrit 35.9 % Mean Corpuscular Volume 77.8 FL Mean Corpuscular Hemoglobin 25.0 PG Mean Corpuscular Hemoglobin Concent 32.2 % Red Cell Distribution Width 16.1 % Platelet Count 342 TH/MM3 Mean Platelet Volume 7.0 FL Neutrophils (%) (Auto) 74.7 % Lymphocytes (%) (Auto) 18.5 % Monocytes (%) (Auto) 5.8 % Eosinophils (%) (Auto) 0.3 % Basophils (%) (Auto) 0.7 % Neutrophils # (Auto) 6.4 TH/MM3 Lymphocytes # (Auto) 1.6 TH/MM3 Monocytes # (Auto) 0.5 TH/MM3 Eosinophils # (Auto) 0.0 TH/MM3 Basophils # (Auto) 0.1 TH/MM3 CBC Comment DIFF FINAL Differential Comment Blood Urea Nitrogen 17 MG/DL Creatinine 0.89 MG/DL Random Glucose 91 MG/DL Calcium Level 8.6 MG/DL Sodium Level 136 MEQ/L Potassium Level 4.0 MEQ/L Chloride Level 105 MEQ/L Carbon Dioxide Level 26.7 MEQ/L Anion Gap 4 MEQ/L Estimat Glomerular Filtration Rate 74 ML/MIN [facility] Medical Decision Making Medical Screen Exam Complete: Yes Emergency Medical Condition: Yes Interpretation(s) LABS: CBC is unremarkable. BMP is unremarkable. Chest x-rays negative. My review of EKG: Sinus bradycardia rate of 55, normal axis, normal intervals, no ischemia. Differential Diagnosis Near significant lightheadedness, dehydration, , back pain, UTI, kidney stone, other Narrative Course Medical decision making 31 year-old woman with back pain, and near syncopal lightheadedness symptoms. Etiology is unclear. She looks well. She is not . I don't think is something dangerous like dissection. She is does have URI symptoms and may have strained her back when she was coughing. No other suggestion of injury or overuse. Given a syncopal symptoms, we'll check EKG and basic labs. We'll check chest x-ray to make sure she does not some unusual like pneumothorax or pneumomediastinum. Otherwise recommend supportive treatment. Diagnosis Primary Impression: Lightheadedness Additional Instructions: Drink plenty fluids stay well-hydrated. Return to the emergency department for any new or worsening symptoms. Med/Other Pt SpecificInfo: No Change to Meds Disposition: 01 DISCHARGE HOME Condition: Stable Glenn Hurtado MD May 30, 2017 01:50
[2017-05-30 01:59] LABS: AUTOMATED NEUTROPHIL # 6.4 TH/MM3 (1.8-7.7); BASOPHIL # 0.1 TH/MM3 (0-0.2); BASOPHIL % 0.7 % (0.0-2.0); EOSINOPHIL % 0.3 % (0.0-4.0); HEMATOCRIT 35.9 % (35.0-46.0); HEMOGLOBIN 11.6 GM/DL (11.6-15.3); LYMPH % 18.5 % (9.0-44.0); LYMPHOCYTE # 1.6 TH/MM3 (1.0-4.8); MEAN CELL VOLUME 77.8 FL (80.0-100.0); MEAN CORPUSCULAR HGB CONC 32.2 % (32.0-36.0); MONO % 5.8 % (0.0-8.0); MONOCYTE # 0.5 TH/MM3 (0-0.9); NEUT % 74.7 % (16.0-70.0); PLATELET COUNT 342 TH/MM3 (150-450); RED BLOOD COUNT 4.62 MIL/MM3 (4.00-5.30); RED CELL DISTRIBUTION WIDTH 16.1 % (11.6-17.2); WHITE BLOOD COUNT 8.6 TH/MM3 (4.0-11.0)
--- NOTE | 2017-05-30 02:22 | RADRPT ---
EXAM DATE/TIME: 05/30/2017 01:53 [facility] COMPARISON: CHEST SINGLE AP, February 04, 2015, 1:38. INDICATIONS : Palpitations. MEDICAL HISTORY : None. SURGICAL HISTORY : Appendectomy. section. Tubal ligation ENCOUNTER: Initial ACUITY: 1 day PAIN SCORE: 6/10 LOCATION: Bilateral chest FINDINGS: The lungs are clear without infiltrate, nodule, or mass. There is no appreciable pleural effusion fo r technique. Heart and mediastinum are unremarkable. Evidence for prior granulomatous exposure with a small calcified granuloma left midlung laterally not changed. CONCLUSION: No acute cardiopulmonary disease. Harsha Gramajo MD on May 30, 2017 at 2:20 Board Certified Radiologist. This report was verified electronically.
[2017-05-30 02:43] LABS: BICARBONATE 26.7 MEQ/L (21.0-32.0); CALCIUM 8.6 MG/DL (8.5-10.1); CREATININE 0.89 MG/DL (0.50-1.00)
--- NOTE | 2017-05-30 14:40 | EKG ---
Date Performed: 05/30/2017 Time Performed: 02:33:03 PTAGE: 31 years EKG: SINUS BRADYCARDIA BORDERLINE ECG PREVIOUS TRACING : 11/30/2014 20.23 DOCTOR: Glenn Wilson Interpretating Date/Time 05/30/2017 14:39:06
== END 2017-05-30 03:09 | disposition home or self-care (01) ==
LOC: NEPE 01:03
DX: R42 Dizziness and giddiness (principal); F17.200 Nicotine dependence, unspecified, uncomplicated
CPT/HCPCS: 71010; 80048; 84703; 85025; 93005; 96360; 99285; J7030

== ENCOUNTER 2017-06-07 15:50 | Emergency (ER) | payer MEDICAID ==
[~2017-06-07] VITALS: Ht 157.5 cm; Wt 80.0 kg
[2017-06-07 15:53] VITALS: BP 132/60; PULSE 97; RESP 16; TEMP 97.6; O2SAT 98
[2017-06-07 16:17] LABS: BILIRUBIN, URINE NEG (NEG); BLOOD, URINE LARGE (NEG); GLUCOSE,URINE NEG (NEG); KETONE, URINE NEG (NEG); NITRITE,URINE NEG (NEG); URINE LEUKOCYTE ESTERASE TRACE (NEG)
[2017-06-07 16:40] LABS: BACTERIA, URINE OCC /hpf; RBC, URINE 100-200 /hpf (0-3); SQUAMOUS EPITHELIAL CELL URINE 0-5 /hpf (0-5); URINE COLOR PINK (YELLW/STRAW)
--- NOTE | 2017-06-07 16:50 | PD ---
HPI Chief Complaint: GI Complaint Time Seen by Provider: 16:36 Travel History International Travel<30 days: No Contact w/Intl Traveler<30days: No Traveled to known affect area: No History of Present Illness HPI The patient was seen and examined in the presence of the nurse. This patient complains of vaginal bleeding and pelvic pain. Location is left lower quadrant. No discharge other than blood. She has had a tubal ligation. No right sided pain. Symptoms severity is moderate. Duration is 5 days. No alleviating factors. No exacerbating factors PFSH Past Medical History Anemia: Yes Asthma: Yes Depression: Yes Cardiovascular Problems: Yes (ANEMIC) Diminished Hearing: No Respiratory: Yes (ASTHMA) Immunizations Current: Yes ?: Not : 2 Para: 2 Tubal Ligation: Yes Past Surgical History Appendectomy: Yes (04/2014) Section: Yes (X 2) Gynecologic Surgery: Yes (LEEP) Social History Alcohol Use: No Tobacco Use: Yes (1PPD) Substance Use: No Allergies-Medications (Allergen,Severity, Reaction): Coded Allergies: No Known Allergies (Unverified Adverse Reaction, Unknown, 06/07/17) Reported Meds & Prescriptions Reported Meds & Active Scripts Active No Active Prescriptions or Reported Medications Review of Systems General / Constitutional: No: Fever Eyes: No: Visual changes HENT: No: Headaches Cardiovascular: No: Chest Pain or Discomfort Respiratory: No: Shortness of Breath Gastrointestinal: No: Abdominal Pain Genitourinary: Positive: Pelvic Pain, Vaginal Bleeding, No: Dysuria Musculoskeletal: No: Pain Skin: No Rash Neurologic: No: Weakness Psychiatric: No: Depression Endocrine: No: Polydipsia Hematologic/Lymphatic: No: Easy Bruising Physical Exam Narrative GENERAL: Well-nourished, well-developed patient in no apparent distress. SKIN: Focused skin assessment reveals no rash and nodules. Skin is Warm and dry. HEAD: Atraumatic. Normocephalic. EYES: Pupils equal and round. No scleral icterus. No injection or drainage. ENT: No nasal bleeding or discharge. Mucous membranes pink and moist. NECK: Trachea midline. No JVD. CARDIOVASCULAR: Regular rate and rhythm. No murmur appreciated. RESPIRATORY: No accessory muscle use. Clear to auscultation. Breath sounds equal bilaterally. GASTROINTESTINAL: Abdomen soft, some left lower quadrant tenderness without rebound or guarding, nondistended. Hepatic and splenic margins not palpable. MUSCULOSKELETAL: No obvious deformities. No clubbing. No cyanosis. No edema. NEUROLOGICAL: Awake and alert. No obvious cranial nerve deficits. Motor grossly within normal limits. Normal speech. PSYCHIATRIC: Appropriate mood and affect; insight and judgment normal. Pelvic: Speculum exam reveals vaginal blood in the vault. No sign of infection. No cervical motion tenderness or discharge. Data Data Last Documented VS Vital Signs Date Time Temp Pulse Resp B/P (MAP) Pulse Ox O2 Delivery O2 Flow Rate FiO2 06/07/17 15:53 97.6 97 16 132/60 (84) 98 Orders Orders Urinalysis - C+S If Indicated (06/07/17 15:56) Ed Urine Pregnancytest Poc (06/07/17 15:56) Complete Blood Count With Diff (06/07/17 16:47) Labs Laboratory Tests Test 06/07/17 15:55 06/07/17 17:05 Urine Color PINK Urine Turbidity CLOUDY Urine pH 6.0 Urine Specific [place] 1.015 Urine Protein TRACE mg/dL Urine Glucose (UA) NEG mg/dL Urine Ketones NEG mg/dL Urine Occult Blood LARGE Urine Nitrite NEG Urine Bilirubin NEG Urine Leukocyte Esterase TRACE Urine RBC 100-200 /hpf Urine WBC 6-8 /hpf Urine Squamous Epithelial Cells 0-5 /hpf Urine Bacteria OCC /hpf Microscopic Urinalysis Comment CULT NOT INDICATED White Blood Count 9.3 TH/MM3 Red Blood Count 4.61 MIL/MM3 Hemoglobin 11.0 GM/DL Hematocrit 35.1 % Mean Corpuscular Volume 76.3 FL Mean Corpuscular Hemoglobin 24.0 PG Mean Corpuscular Hemoglobin Concent 31.4 % Red Cell Distribution Width 15.4 % Platelet Count 369 TH/MM3 Mean Platelet Volume 6.9 FL Neutrophils (%) (Auto) 69.7 % Lymphocytes (%) (Auto) 21.9 % Monocytes (%) (Auto) 6.8 % Eosinophils (%) (Auto) 1.0 % Basophils (%) (Auto) 0.6 % Neutrophils # (Auto) 6.5 TH/MM3 Lymphocytes # (Auto) 2.0 TH/MM3 Monocytes # (Auto) 0.6 TH/MM3 Eosinophils # (Auto) 0.1 TH/MM3 Basophils # (Auto) 0.1 TH/MM3 CBC Comment DIFF FINAL Differential Comment MDM Medical Decision Making Medical Screen Exam Complete: Yes Emergency Medical Condition: Yes Medical Record Reviewed: Yes Differential Diagnosis Ectopic , ovarian cystic disease, fibroid Narrative Course I have reviewed the patient's electronic medical record. 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 Med/Other Pt SpecificInfo: Other Scripts No Active Prescriptions or Reported Meds Disposition: DISCHARGE HOME Condition: Stable Gagan Grace MD Jun 07, 2017 16:50
[2017-06-07 17:13] LABS: AUTOMATED NEUTROPHIL # 6.5 TH/MM3 (1.8-7.7); BASOPHIL # 0.1 TH/MM3 (0-0.2); BASOPHIL % 0.6 % (0.0-2.0); EOSINOPHIL # 0.1 TH/MM3 (0-0.4); HEMATOCRIT 35.1 % (35.0-46.0); LYMPH % 21.9 % (9.0-44.0); MEAN CELL VOLUME 76.3 FL (80.0-100.0); MEAN CORPUSCULAR HGB CONC 31.4 % (32.0-36.0); MEAN PLATELET VOLUME 6.9 FL (7.0-11.0); MONO % 6.8 % (0.0-8.0); MONOCYTE # 0.6 TH/MM3 (0-0.9); NEUT % 69.7 % (16.0-70.0); PLATELET COUNT 369 TH/MM3 (150-450); RED BLOOD COUNT 4.61 MIL/MM3 (4.00-5.30); RED CELL DISTRIBUTION WIDTH 15.4 % (11.6-17.2); WHITE BLOOD COUNT 9.3 TH/MM3 (4.0-11.0)
== END 2017-06-07 18:23 | disposition home or self-care (01) ==
LOC: PHED 15:50
DX: R10.2 Pelvic and perineal pain (principal); N93.9 Abnormal uterine and vaginal bleeding, unspecified; D64.9 Anemia, unspecified; J45.909 Unspecified asthma, uncomplicated; F32.9 Major depressive disorder, single episode, unspecified; F17.200 Nicotine dependence, unspecified, uncomplicated
CPT/HCPCS: 81001; 84703; 85025; 99284

== ENCOUNTER 2017-06-20 18:32 | Emergency (ER) | payer MEDICAID ==
[~2017-06-20] VITALS: Ht 157.5 cm; Wt 83.0 kg
[2017-06-20 18:39] VITALS: BP 136/63; PULSE 83; RESP 16; TEMP 98.6; O2SAT 98
--- NOTE | 2017-06-20 19:14 | PD ---
HPI Chief Complaint: Cold / Flu Symptoms Time Seen by Provider: 19:10 Travel History International Travel<30 days: No Contact w/Intl Traveler<30days: No Traveled to known affect area: No History of Present Illness HPI 31-year-old female with history of asthma presents for evaluation. For 2 days she has had chills, cough, congestion. Cough is occasionally productive. No alleviating factors. Denies sore throat, rash, recent travel. No sick contacts. No other complaints at this time. PFSH Past Medical History Anemia: Yes Asthma: Yes Depression: Yes Diminished Hearing: No Respiratory: Yes (ASTHMA) Immunizations Current: Yes ?: Not LMP: 2-3 WEEKS AGO : 2 Para: 2 Tubal Ligation: Yes Past Surgical History Appendectomy: Yes (04/2014) Section: Yes (X 2) Gynecologic Surgery: Yes (LEEP) Social History Alcohol Use: No Tobacco Use: Yes (1PPD) Substance Use: No Allergies-Medications (Allergen,Severity, Reaction): Coded Allergies: No Known Allergies (Unverified Adverse Reaction, Unknown, 06/20/17) Reported Meds & Prescriptions Reported Meds & Active Scripts Active Prednisone 20 Mg Tab 20 Mg PO BID 5 Days Proair Hfa 8.5 GM Inh (Albuterol Sulfate) 90 Mcg/Act Aer 2 Puff INH Q4-6H PRN 108 mcg/actuation Review of Systems Except as stated in HPI: all other systems reviewed are Neg Physical Exam Narrative GENERAL: Well-nourished female in no acute distress SKIN: Warm and dry. HEAD: Atraumatic. Normocephalic. EYES: Pupils equal and round. No scleral icterus. No injection or drainage. ENT: No nasal bleeding or discharge. Mucous membranes pink and moist. NECK: Trachea midline. No JVD. CARDIOVASCULAR: Regular rate and rhythm. No murmur appreciated. RESPIRATORY: No accessory muscle use. Diffuse wheezing bilaterally. No crackles. GASTROINTESTINAL: Abdomen soft, non-tender, nondistended. Hepatic and splenic margins not palpable. MUSCULOSKELETAL: No obvious deformities. No clubbing. No cyanosis. No edema. NEUROLOGICAL: Awake and alert. No obvious cranial nerve deficits. Motor grossly within normal limits. Normal speech. PSYCHIATRIC: Appropriate mood and affect; insight and judgment normal. Data Data Last Documented VS Vital Signs Date Time Temp Pulse Resp B/P (MAP) Pulse Ox O2 Delivery O2 Flow Rate FiO2 06/20/17 18:39 98.6 83 16 136/63 (87) 98 Orders Orders Influenzae A/B Antigen (06/20/17 19:12) Albuterol-Ipratropium Neb (Duoneb Neb) (06/20/17 19:15) Prednisone (Deltasone) (06/20/17 19:15) Ed Discharge Order (06/20/17 20:01) MDM Medical Decision Making Medical Screen Exam Complete: Yes Emergency Medical Condition: Yes Medical Record Reviewed: Yes Differential Diagnosis Asthma exacerbation, pneumonia, influenza, bronchitis Narrative Course The patient was given DuoNeb treatment and prednisone with significant improvement of her symptoms. Influenza antigen is negative. The patient is being discharged with prednisone and albuterol inhaler for asthma exacerbation. Diagnosis Primary Impression: Asthma exacerbation Additional Instructions: Medication as prescribed. Avoid tobacco products. Return for any emergent medical conditions. Med/Other Pt SpecificInfo: Prescription(s) given Scripts Prednisone (Prednisone) 20 Mg Tab 20 MG PO BID for 5 Days, #10 TAB 0 Refills Prov: Alton Sorto MD 06/20/17 Albuterol 8.5 GM Inh (Proair Hfa 8.5 GM Inh) 90 Mcg/Act Aer 2 PUFF INH Q4-6H Y for SHORTNESS OF BREATH, #1 INHALER 0 Refills 108 mcg/actuation Prov: Alton Sorto MD 06/20/17 Disposition: 01 DISCHARGE HOME Condition: Stable Jonathan Garcia Jun 20, 2017 19:14
[2017-06-20] MEDS ORDERED: predniSONE 20 MG TAB PO ONE (19:15)
[2017-06-20] MEDS: RESP: ALBUTEROL 2.5 MG/IPRATROPIUM 0.5 MG NEB (SCH) INH ×2 (19:20→19:32)
[2017-06-20] MEDS ORDERED: PRED20 PO (20:01)
[2017-06-20] MEDS ORDERED: ALBUAER3 INH (20:01)
== END 2017-06-20 20:28 | disposition home or self-care (01) ==
LOC: PHED 18:32 → PHEFT 20:28
DX: J45.901 Unspecified asthma with (acute) exacerbation (principal); R68.83 Chills (without fever); F17.200 Nicotine dependence, unspecified, uncomplicated; Z86.2 Personal history of diseases of the blood and blood-forming organs and certain disorders involving the immune mechanism; Z86.59 Personal history of other mental and behavioral disorders
CPT/HCPCS: 87804; 94640; 94664; 99282; J7512

== ENCOUNTER 2017-07-05 22:09 | Emergency (ER) | payer MEDICAID ==
[~2017-07-05] VITALS: Ht 157.5 cm; Wt 81.5 kg
[~2017-07-05 22:09] MED LIST changes: +ALBUAER3 INH; -HYDR-3533 PO; -IBUP1TAB7 PO; +PRED20 PO; -ROBA500T PO; -SILV1CRE20 TOPICAL; -TRAM50TA PO; -VENTAER INH
[2017-07-05 22:49] VITALS: BP 127/73; PULSE 65; RESP 16; TEMP 98; O2SAT 100
[2017-07-06] MEDS ORDERED: CYCL10TA PO (03:20)
[2017-07-06] MEDS ORDERED: IBUP-232 PO (03:20)
--- NOTE | 2017-07-06 03:21 | PD ---
HPI Chief Complaint: Musculoskeletal Complaint Time Seen by Provider: 02:58 Travel History International Travel<30 days: No Contact w/Intl Traveler<30days: No Traveled to known affect area: No History of Present Illness HPI The patient is a 31-year-old female that complains of left low back pain for 5- 6 years. She has tried all types of modalities including chiropractic intervention and nothing his work. She comes in tonight because she states it hurts when she coughs. She is not coughing very much and did not cough through her entire exam. She comes in with her who also has a chronic problem. She denies any bladder or bowel dysfunction. The pain radiates only to her left buttocks and no farther. She denies any numbness or weakness of her right lower extremity. She denies any dysuria, frequency or urgency. She states there is no possibility of . The patient has had an MRI for this pain and this was normal. [facility] Past Medical History Anemia: Yes Asthma: Yes Depression: Yes Diminished Hearing: No Respiratory: Yes (ASTHMA) Immunizations Current: Yes Tetanus Vaccination: < 5 Years Influenza Vaccination: Yes ?: Not LMP: 1 WEEK AGO : 2 Para: 2 Tubal Ligation: Yes Past Surgical History Appendectomy: Yes (04/2014) Section: Yes (X 2) Gynecologic Surgery: Yes (LEEP) Oral Surgery: Yes Social History Alcohol Use: No Tobacco Use: Yes (1PPD) Substance Use: No Allergies-Medications (Allergen,Severity, Reaction): Coded Allergies: No Known Allergies (Unverified Adverse Reaction, Unknown, 07/05/17) Reported Meds & Prescriptions Reported Meds & Active Scripts Active Review of Systems Except as stated in HPI: all other systems reviewed are Neg Physical Exam Narrative GENERAL: Well-nourished, slightly obese, alert and oriented patient in minimal distress with her left buttocks/back discomfort. Her vital signs are normal. SKIN: Focused skin assessment warm/dry. HEAD: Normocephalic. EYES: No scleral icterus. No injection or drainage. NECK: Supple, trachea midline. No JVD or lymphadenopathy. CARDIOVASCULAR: Regular rate and rhythm without murmurs, gallops, or rubs. RESPIRATORY: Breath sounds equal bilaterally. No accessory muscle use. GASTROINTESTINAL: Abdomen soft, non-tender, nondistended. MUSCULOSKELETAL: No cyanosis, or edema. There is tenderness in the pain is completely reproducible by pressing on the left L5-S1 area. There is no deformity of the lumbosacral spine. Straight leg raising is normal, deep tendon reflexes are +1 bilaterally both patella and Achilles and pinprick is normal. BACK: Nontender without obvious deformity. No CVA tenderness. Data Data Last Documented VS Vital Signs Date Time Temp Pulse Resp B/P (MAP) Pulse Ox O2 Delivery O2 Flow Rate FiO2 07/05/17 22:49 98.0 65 16 127/73 (91) 100 MDM Medical Decision Making Medical Screen Exam Complete: Yes Emergency Medical Condition: Yes Medical Record Reviewed: Yes Differential Diagnosis Chronic lumbosacral strain, herniated nucleus pulposus, muscle strain, sciatic nerve pain Narrative Course The patient appears to have chronic lumbosacral strain. She is told to try an pilot boat operator, sometimes acupuncture works very well with this pain. She is given Motrin 600 mg 3 times daily and a prescription for Flexeril. She is told to try a heating pad on its lowest setting an interpose a towel between her skin and the pad. Diagnosis Primary Impression: Lumbar strain Additional Instructions: If you use a heating pad, turned on its lowest setting an interposed a towel between your skin and the pad to avoid alexandre. Warmth is useful but hot does not help anymore and is dangerous. I would like you to try an pilot boat operator, sometimes acupuncture works for a well for this type of pain. The Flexeril is one tablet 3 times daily and the Motrin is also one tablet 3 times daily. Med/Other Pt SpecificInfo: Prescription(s) given Scripts Cyclobenzaprine (Flexeril) 10 Mg Tab 10 MG PO TID for Muscle Spasm, #30 TAB 0 Refills Prov: Alton Sorto MD 07/06/17 Ibuprofen (Ibuprofen) 600 Mg Tab 600 MG PO TID, #33 TAB 0 Refills Prov: Alton Sorto MD 07/06/17 Disposition: 01 DISCHARGE HOME Alton Sorto MD Jul 06, 2017 03:21
[2017-07-06 03:27] VITALS: BP 136/82
== END 2017-07-06 03:35 | disposition home or self-care (01) ==
LOC: PHED 22:09
DX: S39.012A Strain of muscle, fascia and tendon of lower back, initial encounter (principal); J45.909 Unspecified asthma, uncomplicated; F32.9 Major depressive disorder, single episode, unspecified; F17.210 Nicotine dependence, cigarettes, uncomplicated
CPT/HCPCS: 99283

== ENCOUNTER 2017-10-16 00:31 | Emergency (ER) | payer MEDICAID ==
[~2017-10-16] VITALS: Ht 157.5 cm; Wt 78.3 kg
[~2017-10-16 00:31] MED LIST changes: -ALBUAER3 INH; +CYCL10TA PO; +IBUP-232 PO; -PRED20 PO
[2017-10-16 00:34] VITALS: BP 122/61; PULSE 75; RESP 16; TEMP 97.9; O2SAT 98
--- NOTE | 2017-10-16 01:09 | PD ---
HPI Chief Complaint: Injury Time Seen by Provider: 00:53 Travel History International Travel<30 days: No Contact w/Intl Traveler<30days: No Traveled to known affect area: No History of Present Illness HPI This is a 31-year-old female who presents today with complaints of left thumb pain. Patient states that she uses her left hand and does a lot of repetitive movement. She reports that she is able to pop her thumb out of joint. She reports it happens multiple times. She gives history that she is usually able to pull her thumb back in the joint. She reports pain at the base of her thumb on both sides. There is no reported trauma other than the repetitive use. She denies any old injury. There is no numbness or tingling of her thumb. PFSH Past Medical History Anemia: Yes Asthma: Yes Depression: Yes Diminished Hearing: No Respiratory: Yes (ASTHMA) Immunizations Current: Yes Tetanus Vaccination: < 5 Years Influenza Vaccination: Yes ?: Not LMP: 5-7-18 : 2 Para: 2 Tubal Ligation: Yes Past Surgical History Appendectomy: Yes (04/2014) Section: Yes (X 2) Gynecologic Surgery: Yes (LEEP) Oral Surgery: Yes Social History Alcohol Use: No Tobacco Use: Yes (1PPD) Substance Use: No Allergies-Medications (Allergen,Severity, Reaction): Coded Allergies: No Known Allergies (Unverified Adverse Reaction, Unknown, 10/16/17) Reported Meds & Prescriptions Reported Meds & Active Scripts Active Medrol Dosepak (Methylprednisolone) 4 Mg Dspk 4 Mg PO DIRECTED Per Pharmacist direction Ibuprofen 600 Mg Tab 600 Mg PO Q8HR PRN 10 Days Review of Systems Except as stated in HPI: all other systems reviewed are Neg Musculoskeletal: Positive: Arthralgias, Limited ROM (Secondary to pain), Pain ( Left base of the thumb.), No: Edema Neurologic: Positive: Paresthesia, Sensory Disturbance Physical Exam Narrative GENERAL: Well-nourished, well-developed patient. SKIN: Focused skin assessment warm/dry. HEAD: Normocephalic/atraumatic. MUSCULOSKELETAL: No cyanosis, or edema. Examination patient's left thumb, there is no bony deformity. She is able to flex and extend it however reports pain when she extends it more than flexing. There is tenderness to palpation on her medial and lateral proximal M CP joint. There is no crepitance appreciated. NEUROLOGICAL: Awake and alert. Cranial nerves II through XII intact. Motor and sensory grossly within normal limits. Five out of 5 muscle strength in all muscle groups. Normal speech. Data Data Last Documented VS Vital Signs Date Time Temp Pulse Resp B/P (MAP) Pulse Ox O2 Delivery O2 Flow Rate FiO2 10/16/17 00:40 Room Air 10/16/17 00:34 97.9 75 16 122/61 (81) 98 Orders Orders Finger ([id number]) (10/16/17 00:53) Splint Or Brace Apply/Monitor (10/16/17 01:10) Ketorolac Inj (Toradol Inj) (10/16/17 01:15) Mandatory Outpatient Referral (10/16/17 01:10) [facility] Medical Decision Making Medical Screen Exam Complete: Yes Emergency Medical Condition: Yes Differential Diagnosis Left MCP bony injury versus ligamentous injury versus arthritis Narrative Course 31-year-old female presents with left thumb pain. Pain is at the proximal MCP joint. The patient denies any injury. She does state that she does repetitive motion with that hand. She states it has popped out multiple times in the past. She states that usually has been pulled in pop back in the place. I do not appreciate any significant ligamentous instability. Cap refill is less than 3 seconds and she has normal sensation in the distal thumb. She has been placed in a left thumb splint. She will be given a prescription for ibuprofen 600 mg tablets 1 every 8 hours as needed for pain. She also be given a prescription for Medrol Dosepak. Will be a mandatory referral placed for hand surgery. She is instructed to use moist heat 2-3 times daily and avoid using her hand for the repetitive movement. Diagnosis Primary Impression: Pain in thumb joint with movement of left hand Additional Instructions: Avoid using the left hand until seen by hand surgeon. Moist heat 2-3 times daily. A mandatory referral has been placed for a hand doctor. He should receive a call within a few days from a wrapper caser given information about your appointment. Scripts Methylprednisolone Dosepak (Medrol Dosepak) 4 Mg Dspk 4 MG PO DIRECTED, #1 DSPK 0 Refills Per Pharmacist direction Prov: Chris Vallecillo MD 10/16/17 Ibuprofen (Ibuprofen) 600 Mg Tab 600 MG PO Q8HR Y for PAIN for 10 Days, #30 TAB 0 Refills Prov: Chris Vallecillo MD 10/16/17 Disposition: 01 DISCHARGE HOME Condition: Stable Chris Vallecillo MD October 16, 2017 01:09
--- NOTE | 2017-10-16 01:12 | RADRPT ---
EXAM DATE/TIME: 10/16/2017 00:56 [facility] COMPARISON: No previous studies available for comparison. INDICATIONS : Pain left first metacarpal, no known trauma. MEDICAL HISTORY : None. SURGICAL HISTORY : None. ENCOUNTER: Initial ACUITY: 1 week PAIN SCORE: 4/10 LOCATION: Left 1st digit FINDINGS: Examination of the first digit of the left hand demonstrates no evidence of fracture or dislocation. No radiopaque foreign bodies are seen. The soft tissues are intact. CONCLUSION: Normal examination for a patient of this age. Dhaval Mark MD on October 16, 2017 at 1:08 Board Certified Radiologist. This report was verified electronically.
[2017-10-16] MEDS ORDERED: MEDR4PAK PO (01:13)
[2017-10-16] MEDS ORDERED: IBUP-232 PO (01:13)
[2017-10-16] MEDS ORDERED: KETOROLAC TROMETHAMINE 60 MG/2 ML (IM) VIAL IM ONE (01:15)
== END 2017-10-16 01:50 | disposition home or self-care (01) ==
LOC: PHED 00:31
DX: M79.645 Pain in left finger(s) (principal); F32.9 Major depressive disorder, single episode, unspecified; J45.909 Unspecified asthma, uncomplicated; F17.200 Nicotine dependence, unspecified, uncomplicated
CPT/HCPCS: 73140; 96372; 99283; J1885; L3808

== ENCOUNTER 2018-04-06 20:13 | Observation (INO) ==
--- NOTE | 2018-04-06 21:08 | ED ---
HPI General Chief Complaint: Chest Pain Stated Complaint: chest pain Time Seen by Provider: 04/06/18 20:45 Source: patient and RN notes reviewed Mode of arrival: ambulatory Limitations: no limitations History of Present Illness HPI narrative: 32-year-old female presents to the emergency department for evaluation of midsternal chest pain that radiates across the left chest that started at 5 PM today. She states it has worsened. It is constant. Patient states she did lay down and rest and laid on her left side which did help the pain slightly. She did have some paresthesias left arm after laying on her left side which are now resolved. Patient denies exacerbating factors. She does report history of asthma, but is not on any inhalers. She currently takes no prescribed medications. She has no cardiac history, but states she has a significant family cardiac history. Her mother had a heart attack in her 40s and states that heart disease runs in her family. Patient denies any illicit drug use. She denies any leg edema. No hemoptysis. No history DVT or PE. She is not on controls and denies reporting history tubal ligation. Current pain is 8/10, sharp. Moderate severity. MD complaint: Reports chest pain STEMI Alert: No Onset (ago): hour(s) (4) Time: 15:00 Duration: constant Onset: during rest Pain location: Reports substernal Severity: moderate Severity scale (1-10): 8 Quality: Reports sharp Relieving factors: rest Exacerbating factors: nothing Context: Denies recent illness, recent surgery, recent immobilization, trauma/ injury and history of DVT/PE Associated symptoms: Denies nausea, vomiting, diaphoresis, dyspnea, sense of impending doom, syncope, palpitations, fever, cough and leg swelling Treatments prior to arrival chest pain: Reports none Related Data Home Medications Medication Instructions Recorded Confirmed No Known Home Medications 04/06/18 04/06/18 Allergies Allergy/AdvReac Type Severity Reaction Status Date / Time No Known Allergies Allergy Verified 04/06/18 20:19 Review of Systems ROS: all other systems reviewed are negative [facility] Medical History Medical History Anemia (Acute) Asthma (Acute) Surgical History Surgical History Hx of appendectomy (Acute) Hx of section (Acute) Social History Social History Substance History: No History of Abuse Second Hand Smoke Exposure: Yes Smoking Status: Current every day smoker Tobacco Type: Cigarettes How Often Do You Have a Drink Containing Alcohol: Never Recent Travel in [facility] within the Last 8 Weeks: No Recent Out of Country Travel within the Last 8 Weeks: No Immunization History Tetanus Immunization: Unsure Exam Narrative Exam Narrative: GENERAL: Well-nourished, well-developed female patient, afebrile SKIN: Focused skin assessment warm/dry. HEAD: Normocephalic. Atrauamtic EYES: No scleral icterus. No injection or drainage. NECK: Supple, trachea midline. No JVD or lymphadenopathy. CARDIOVASCULAR: Regular rate and rhythm without murmurs, gallops, or rubs. Bilateral radial and pedal pulses 2+ RESPIRATORY: Breath sounds equal bilaterally. No accessory muscle use. Lung sounds are clear to auscultation GASTROINTESTINAL: Abdomen soft, non-tender, nondistended. MUSCULOSKELETAL: No cyanosis, or edema. Midsternal chest pain is reproduced with palpation BACK: Nontender without obvious deformity. No CVA tenderness. Course Initial Documented Vital Signs Temperature 97.2 F L 04/06/18 20:15 Pulse Rate 71 04/06/18 20:15 Respiratory Rate 18 04/06/18 20:15 Blood Pressure 136/85 04/06/18 20:15 Pulse Oximetry 100 04/06/18 20:15 Last Documented Vital Signs Temperature 97.2 F L 04/06/18 20:15 Pulse Rate 78 04/06/18 21:23 Respiratory Rate 16 04/06/18 20:50 Blood Pressure 123/73 04/06/18 20:50 Pulse Oximetry 99 04/06/18 21:26 Medical Decision Making [facility] Narrative Medical decision making narrative: 32-year-old female presents to the emergency department for evaluation of midsternal chest pain started at 5 PM. She reports significant family history of cardiac disease. EKG shows sinus rhythm, heart rate 66, no acute ST changes. IV access established. CBC, CMP, magnesium , CK, troponin, PTT, PT/INR, chest x-ray ordered and pending. Patient is given aspirin 162 mg p.o. CBC shows no acute abnormality. CMP shows no acute abnormality. Magnesium is 2.0. CK is 176. Troponin is less than 0.02. PTT is 29.3. PT/INR is 10.0/ 1.0. Chest x-ray shows no evidence of acute cardiopulmonary disease. I discussed the case with my attending physician, Dr. Vallecillo, who recommends admission chest pain center. Patient agrees to this. Medical Screen Exam Complete: Yes Emergency Medical Condition: Yes Differential Diagnosis Differential Diagnosis: ACS vs. chest wall pain vs. pneumonia vs. pneumothorax vs. pleurisy Medical Records Medical records reviewed: Yes I reviewed the patient's medical records. Lab Data Result diagrams: 04/06/18 21:05 04/06/18 21:05 Lab Results 04/06/18 04/06/18 04/06/18 Range/Units 21:05 21:05 21:05 WBC 9.3 (4.0-11.0) th/mm3 RBC 4.51 (4.00-5.30) mil/mm3 Hgb 12.3 (11.6-15.3) gm/dL Hct 37.8 (35.0-46.0) % MCV 83.8 (80.0-100.0) fL MCH 27.3 (27.0-34.0) pg MCHC 32.6 (32.0-36.0) % RDW 15.1 (11.6-17.2) % Plt Count 332 (150-450) th/mm3 MPV 6.8 L (7.0-11.0) fL Neut % (Auto) 56.8 (16.0-70.0) % Lymph % (Auto) 32.8 (9.0-44.0) % [place] % (Auto) 7.8 (0.0-8.0) % Eos % (Auto) 1.5 (0.0-4.0) % Baso % (Auto) 1.1 (0.0-2.0) % Neut # (Auto) 5.3 (1.8-7.7) th/mm3 Lymph # (Auto) 3.0 (1.0-4.8) th/mm3 [place] # (Auto) 0.7 (0.0-0.9) th/mm3 Eos # (Auto) 0.1 (0.0-0.4) th/mm3 Baso # (Auto) 0.1 (0.0-0.2) th/mm3 WBC Differential . Differential Comment Auto diff final PT 10.0 (9.8-11.6) sec INR 1.0 Ratio APTT 29.3 (23.4-31.7) sec Sodium 141 (136-145) meq/L Potassium 4.1 (3.5-5.1) meq/L Chloride 108 H (98-107) meq/L Carbon Dioxide 27.5 (21.0-32.0) meq/L Anion Gap 6 (5-15) meq/L BUN 16 (7-18) mg/dL Creatinine 0.86 (0.50-1.00) mg/dL Estimated GFR 76 L (>89) mL/min Random Glucose 94 (74-106) mg/dL Calcium 8.6 (8.5-10.1) mg/dL Magnesium 2.0 (1.5-2.5) mg/dL Total Bilirubin 0.2 (0.2-1.0) mg/dL AST 15 (15-37) U/L ALT 24 (10-53) U/L Alkaline Phosphatase 60 (45-117) U/L Total Creatine Kinase 176 (26-192) U/L CK-MB (CK-2) 1.8 (0.5-3.6) ng/mL Troponin I Less than 0.02 L (0.02-0.05) ng/mL Total Protein 7.8 (6.4-8.2) g/dL Albumin 3.8 (3.4-5.0) g/dL Imaging Data Radiologist's impression: Chest X-Ray 04/06/18 21:00 CONCLUSION: No evidence of acute cardiopulmonary disease. Discharge Plan Discharge Disposition Patient Disposition: 30 Still Patient Discharge Details Diagnosis: Chest pain Physicians Team ED Provider: Chris Vallecillo ED Midlevel Provider: Melody Gonsalez Primary Care Provider: Primary Care Cami Zhou Attending Provider: Will Manzano Discharge Interventions Interventions: Vital Signs Last Done: 04/06/18 20:50 Status ED Status: Admitted Observation Patient
[2018-04-06 21:11] LABS: Baso # (Auto) 0.1 th/mm3 (0.0-0.2); Baso % (Auto) 1.1 % (0.0-2.0); Eos # (Auto) 0.1 th/mm3 (0.0-0.4); Eos % (Auto) 1.5 % (0.0-4.0); Hematocrit 37.8 % (35.0-46.0); Hemoglobin 12.3 gm/dL (11.6-15.3); Lymph % (Auto) 32.8 % (9.0-44.0); Mean Corpuscular HGB Conc 32.6 % (32.0-36.0); Mean Corpuscular Hemoglobin 27.3 pg (27.0-34.0); Mean Corpuscular Volume 83.8 fL (80.0-100.0); Mean Platelet Volume 6.8 fL (7.0-11.0); Mono # (Auto) 0.7 th/mm3 (0.0-0.9); Mono % (Auto) 7.8 % (0.0-8.0); Neut # (Auto) 5.3 th/mm3 (1.8-7.7); Neut % (Auto) 56.8 % (16.0-70.0); Platelet Count 332 th/mm3 (150-450); Red Blood Count 4.51 mil/mm3 (4.00-5.30); Red Cell Distribution Width 15.1 % (11.6-17.2); White Blood Count 9.3 th/mm3 (4.0-11.0)
[2018-04-06 21:23] LABS: Activated Partial Thrombo Time 29.3 sec (23.4-31.7)
--- NOTE | 2018-04-06 21:28 | XR ---
EXAM DATE: 04/06/2018 9:14 PM EDT AGE/SEX: 32 years / Female INDICATIONS: Chest pain. CLINICAL DATA: This is the patient's initial encounter. Patient reports that signs and symptoms have been present for 1 day and indicates a pain score of 4/10. MEDICAL/SURGICAL HISTORY: None. . Appendectomy. section. Tubal ligation COMPARISON: [facility], CHEST PA & LAT, 11/30/2014. [facility], CHEST SINGLE AP, 05/30/2017. . FINDINGS: A single AP view of the chest demonstrates the lungs to be symmetrically aerated without evidence of mass, infiltrate or effusion. The cardiomediastinal contours are unremarkable. Osseous structures a re intact. Subcentimeter granuloma laterally of the left midlung is long-term stable. CONCLUSION: No evidence of acute cardiopulmonary disease. Electronically signed by: Brown Silveira MD 04/06/2018 9:27 PM EDT
[2018-04-06 21:39] LABS: Albumin 3.8 g/dL (3.4-5.0); Anion Gap 6 meq/L (5-15); Aspartate Aminotransferase 15 U/L (15-37); Blood Urea Nitrogen 16 mg/dL (7-18); Calcium 8.6 mg/dL (8.5-10.1); Carbon Dioxide 27.5 meq/L (21.0-32.0); Chloride 108 meq/L (98-107); Glomerular Filtration Rate 76 mL/min (>89); Glucose,Random 94 mg/dL (74-106); Potassium 4.1 meq/L (3.5-5.1); Sodium 141 meq/L (136-145)
[2018-04-06 21:40] LABS: Alanine Aminotransferase 24 U/L (10-53)
[2018-04-06 21:43] LABS: Alkaline Phosphatase 60 U/L (45-117); Creatine Kinase 176 U/L (26-192); Total Protein 7.8 g/dL (6.4-8.2)
[2018-04-06] MEDS ORDERED: Ketorolac Inj 30 MG/ML (IVP) Vial IV.PUSH ONE (21:52)
[2018-04-06 21:56] LABS: Creatine Kinase MB 1.8 ng/mL (0.5-3.6)
[2018-04-06] MEDS ORDERED: Acetaminophen 500 MG Tablet PO PRN (21:57)
[2018-04-07 01:09] LABS: Creatine Kinase 140 U/L (26-192)
[2018-04-07 03:37] LABS: Creatine Kinase 126 U/L (26-192)
--- NOTE | 2018-04-07 08:48 | P.HPCA ---
History of Present Illness Primary Care Physician: No Primary Care Physician Chief Complaint: Chest pain History of Present Illness: 32-year-old female with history of asthma since childhood and current smoker presents emergency room for further evaluation of chest pain. Onset last evening between 5 and 6 PM. Nonexertional occurred when watching TV. Location left anterior chest. Described as a ripping sensation with radiation to left inframammary area and left arm. Left arm described as tingling. Duration constant. Associated symptoms including "feeling hot" and hurt to take a deep breath. No nausea, vomiting, or diaphoresis. Denies similar pain in the past. Reports asthma is not well controlled, using her mother's albuterol rescue inhaler every other day often daily. No recent fever, chills, increasing sputum production, or injury. Current 1-1.5 pack day smoker. Endorses early onset family cardiovascular disease. Both parents had MIs in their early 40s. Past cardiac testing None Social history No known hypertension, hyperlipidemia, or diabetes. Current 1-1.5 pack day smoker. No alcohol or recreational drug use. 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 Lives with mother. 2 young children, daughter age 5 and son age 9. Family history Both mother and father had heart attacks in her early 40s. - Diagnosis (1) Atypical chest pain (2) Asthma (3) Tobacco use Review of Systems All other systems reviewed negative except as stated in HPI Comments: currently on menses PMFSH - History History Provided By: Patient - Medical History Medical History: Medical History (Last Reviewed 04/07/18 @ 08:56 by MARICARMEN Diaz) Anemia Asthma - Surgical History Surgical History: Surgical History (Last Reviewed 04/07/18 @ 08:56 by MARICARMEN Diaz) Hx of appendectomy Hx of section - Family History Family History: Family History (Last Updated 04/07/18 @ 08:57 by MARICARMEN Diaz) Mother Type 2 diabetes mellitus Asthma Hypertension Myocardial infarction Father Myocardial infarction - Social History I have reviewed the patient's Social History: Yes - Tobacco History Second Hand Smoke Exposure: No Tobacco Use In Past 30 Days: Yes Smoking Status: Current every day smoker Tobacco Type: Cigarettes Packs Per Day: 1 - Alcohol History How Often Do You Have a Drink Containing Alcohol: Never - Substance Use History Substance History: No History of Abuse - Travel History History of Recent Travel: No Recent Travel in the [place] Within the Last 8 Weeks: No Recent Travel Out of the Country Within the Last 8 Weeks: No - Immunization History Tetanus Immunization: Unsure Medications and Allergies Active Medications: Active Medications Acetaminophen (Tylenol) 500 mg PO Q4H PRN PRN Reason: HEADACHE Last Admin: 04/07/18 00:22 Dose: 500 mg Ondansetron HCl (Zofran Inj) 4 mg IV.PUSH Q6H PRN PRN Reason: NAUSEA Sodium Chloride (Ns Flush) 2 ml IV.FLUSH UNSCH PRN PRN Reason: FLUSH AFTER USING IV ACCESS Sodium Chloride (Ns Flush) 2 ml IV.FLUSH BID KAUSHAL Sodium Chloride (Ns Flush) 2 ml IV.FLUSH PRN PRN PRN Reason: FLUSH AFTER USING IV ACCESS Allergies Allergy/AdvReac Type Severity Reaction Status Date / Time No Known Allergies Allergy Verified 04/06/18 20:19 Exam Vital signs: Vital Signs 04/06/18 20:15 04/06/18 20:50 04/06/18 21:23 Temperature 97.2 F L Pulse Rate 71 81 78 Respiratory Rate 18 16 Blood Pressure 136/85 123/73 Pulse Oximetry 100 99 04/06/18 21:24 04/06/18 21:26 04/06/18 23:58 Temperature 98.3 F Pulse Rate 62 Respiratory Rate 18 Blood Pressure 115/72 Pulse Oximetry 99 99 97 04/07/18 03:05 04/07/18 05:30 04/07/18 08:00 Temperature 97.6 F 98.2 F Pulse Rate 54 L 61 Respiratory Rate 18 18 16 Blood Pressure 111/73 120/72 Pulse Oximetry 96 96 04/07/18 08:08 Temperature Pulse Rate Respiratory Rate Blood Pressure Pulse Oximetry 94 L Intake & Output 04/06/18 04/07/18 04/07/18 19:59 06:59 18:59 Weight Other: # Voids Narrative: GENERAL: Alert WN, WD, NAD, pleasant, overweight female HEAD: NC, AT NECK: Supple, no masses, trachea midline CV: RRR, without murmur, rub, gallop, no JVD, S1-S2. Chest wall tender with palpation. RESP: Lungs diffuse expiratory wheeze, decreased breath sounds, no crackles or rhonchi, symmetrical chest rise, nonlabored, able to speak in full sentences ABD: Soft, NT, ND, no masses, positive bowel tones EXT: Pulses +2x4, no dependent edema MS: Normal tone x4 extremities, nontender, no obvious deformities, full range of motion NEURO: CN II through CN XII grossly intact, motor strength 5/5 PSYCH: A+O x3, pleasant affect, appropriate speech, appropriate mood, insight and judgment SKIN: Normal turgor, normal texture, no lesions, no rashes, even hair distribution, multiple tattoos Results 04/06/18 21:05 04/06/18 21:05 Cardiac Enzymes 04/06/18 04/07/18 04/07/18 Range/Units 21:05 00:20 03:00 AST 15 (15-37) U/L CK-MB (CK-2) 1.8 (0.5-3.6) ng/mL Troponin I Less than 0.02 L Less than 0.02 L Less than 0.02 L (0.02-0.05) ng/mL Coagulation 04/06/18 Range/Units 21:05 PT 10.0 (9.8-11.6) sec APTT 29.3 (23.4-31.7) sec CBC 04/06/18 Range/Units 21:05 WBC 9.3 (4.0-11.0) th/mm3 RBC 4.51 (4.00-5.30) mil/mm3 Hgb 12.3 (11.6-15.3) gm/dL Hct 37.8 (35.0-46.0) % Plt Count 332 (150-450) th/mm3 Neut # (Auto) 5.3 (1.8-7.7) th/mm3 Lymph # (Auto) 3.0 (1.0-4.8) th/mm3 [place] # (Auto) 0.7 (0.0-0.9) th/mm3 Eos # (Auto) 0.1 (0.0-0.4) th/mm3 Baso # (Auto) 0.1 (0.0-0.2) th/mm3 Comprehensive Metabolic Panel 04/06/18 Range/Units 21:05 Sodium 141 (136-145) meq/L Potassium 4.1 (3.5-5.1) meq/L Chloride 108 H (98-107) meq/L Carbon Dioxide 27.5 (21.0-32.0) meq/L BUN 16 (7-18) mg/dL Creatinine 0.86 (0.50-1.00) mg/dL Calcium 8.6 (8.5-10.1) mg/dL AST 15 (15-37) U/L ALT 24 (10-53) U/L Alkaline Phosphatase 60 (45-117) U/L Total Protein 7.8 (6.4-8.2) g/dL Albumin 3.8 (3.4-5.0) g/dL Intake and Output 04/06/18 04/07/18 04/07/18 23:59 06:59 14:59 Other: # Voids Weight - Imaging and Cardiology Imaging: Impressions Chest X-Ray 04/06/18 21:00 CONCLUSION: No evidence of acute cardiopulmonary disease. EKG interpretations - EKG EKG results cardiology: sinus rhythm, normal axis, normal QRS, normal ST/T Caprini VTE Risk Assessment Caprini VTE Risk Assessment: No/Low Risk (score <= 1) Caprini Risk Assessment Model: Point Value = 1 Point Value = 2 Point Value = 3 Point Value = 5 Age 41-60 Minor surgery BMI > 25 kg/m2 Swollen legs Varicose veins or History of unexplained or recurrent spontaneous Oral contraceptives or hormone replacement Sepsis (< 1 month) Serious lung disease, including pneumonia (< 1 month) Abnormal pulmonary function Acute myocardial infarction Congestive heart failure (< 1 month) History of inflammatory bowel disease Medical patient at bed rest Age 61-74 Arthroscopic surgery Major open surgery (> 45 min) Laparoscopic surgery (> 45 min) Malignancy Confined to bed (> 72 hours) Immobilizing plaster cast Central venous access Age >= 75 History of VTE Family history of VTE Factor V Leiden Prothrombin [id number] Lupus anticoagulant Anticardiolipin antibodies Elevated serum homocysteine Heparin-induced thrombocytopenia Other congenital or acquired thrombophilia Stroke (< 1 month) Elective arthroplasty Hip, pelvis, or leg fracture Acute spinal cord injury (< 1 month) Prophylaxis Regimen: Total Risk Factor Score Risk Level Prophylaxis Regimen 0-1 Low Early ambulation 2 Moderate Order ONE of the following: *Sequential Compression Device (SCD) *Heparin 5000 units SQ BID 3-4 Higher Order ONE of the following medications: *Heparin 5000 units SQ TID *Enoxaparin/Lovenox 40 mg SQ daily (WT < 150 kg, CrCl > 30 mL/min) *Enoxaparin/Lovenox 30 mg SQ daily (WT < 150 kg, CrCl > 10-29 mL/min) *Enoxaparin/Lovenox 30 mg SQ BID (WT < 150 kg, CrCl > 30 mL/min) AND/OR *Sequential Compression Device (SCD) 5 or more Highest Order ONE of the following medications: *Heparin 5000 units SQ TID (Preferred with Epidurals) *Enoxaparin/Lovenox 40 mg SQ daily (WT < 150 kg, CrCl > 30 mL/min) *Enoxaparin/Lovenox 30 mg SQ daily (WT < 150 kg, CrCl > 10-29 mL/min) *Enoxaparin/Lovenox 30 mg SQ BID (WT < 150 kg, CrCl > 30 mL/min) AND *Sequential Compression Device (SCD) Assessment and Plan - Assessment (1) Atypical chest pain Code(s): R07.89 - Other chest pain Status: Acute Plan: Admitted chest pain center. ACS ruled out 3 sets of EKGs and cardiac enzymes. Seen and evaluated by Dr. Will Manzano. Discomfort musculoskeletal chest wall pain. Toradol 30 mg IV x1 dose now. Albuterol treatment x1 now. No further cardiac testing. Plan to discharge later this morning. (2) Asthma Code(s): J45.909 - Unspecified asthma, uncomplicated Status: Chronic Plan: Albuterol 2.5 mg as needed, 1 dose now. Discussed in length importance of establishing with a primary care provider. Made aware of local free or fee for service clinics available, such as the [facility] or [facility]. Contact information will be provided upon discharge Solu-cortef 100mg IV x1 dose now, followed by Medrol dose pack upon discharge. Albuterol inhaler will also prescribed upon discharge so she does not have to continuing use mother's inhaler. (3) Tobacco use Code(s): Z72.0 - Tobacco use Status: Chronic Plan: Strongly encouraged and stressed importance of tobacco cessation, especially with known asthma. Instructed to quit smoking. Made aware of Tobacco Free [place] program available to her and how to contact program for more information. H&P: Quality - VTE Deep Vein Thrombosis/Pulmonary Embolism Present on Admission: No (2) Asthma Qualifiers: Asthma complication type: unspecified
--- NOTE | 2018-04-07 09:11 | P.PNCA ---
Subjective Interval history: 32-year-old young woman presenting with an acute asthmatic episode. She was evaluated and presented by the nurse practitioner and then seen and examined personally. I am in agreement with the documentation is presented on the chart. Pertinent to note that the patient has no primary care physician locally although she has now working for [employer] and will have insurance in the near can maintain her job. She clearly needs ongoing care for her asthma as she is currently using her mother's inhaler. Also noted that much of her chest pain is not only pleuritic but is reproduced with any pressure in the costochondral area. Medications and Allergies Active Medications: Active Medications Acetaminophen (Tylenol) 500 mg PO Q4H PRN PRN Reason: HEADACHE Last Admin: 04/07/18 00:22 Dose: 500 mg Albuterol (Albuterol Neb (Prn)) 2.5 mg NEB Q4HR NEB PRN PRN Reason: SHORTNESS OF BREATH/WHEEZING Ketorolac Tromethamine (Toradol Inj) 30 mg IV.PUSH ONCE ONE Stop: 04/07/18 10:01 Ondansetron HCl (Zofran Inj) 4 mg IV.PUSH Q6H PRN PRN Reason: NAUSEA Sodium Chloride (Ns Flush) 2 ml IV.FLUSH UNSCH PRN PRN Reason: FLUSH AFTER USING IV ACCESS Sodium Chloride (Ns Flush) 2 ml IV.FLUSH BID KAUSHAL Sodium Chloride (Ns Flush) 2 ml IV.FLUSH PRN PRN PRN Reason: FLUSH AFTER USING IV ACCESS Allergies Allergy/AdvReac Type Severity Reaction Status Date / Time No Known Allergies Allergy Verified 04/06/18 20:19 Home Medications Medication Instructions Recorded Confirmed Type No Known Home Medications 04/06/18 04/06/18 History Physical Exam Vital signs: Vital Signs 04/06/18 20:15 04/06/18 20:50 04/06/18 21:23 Temperature 97.2 F L Pulse Rate 71 81 78 Respiratory Rate 18 16 Blood Pressure 136/85 123/73 Pulse Oximetry 100 99 04/06/18 21:24 04/06/18 21:26 04/06/18 23:58 Temperature 98.3 F Pulse Rate 62 Respiratory Rate 18 Blood Pressure 115/72 Pulse Oximetry 99 99 97 04/07/18 03:05 04/07/18 05:30 04/07/18 08:00 Temperature 97.6 F 98.2 F Pulse Rate 54 L 52 L Respiratory Rate 18 18 16 Blood Pressure 111/73 120/72 Pulse Oximetry 96 96 04/07/18 08:08 Temperature Pulse Rate Respiratory Rate Blood Pressure Pulse Oximetry 94 L Intake & Output 04/06/18 04/07/18 04/07/18 19:59 06:59 18:59 Weight Other: # Voids Narrative: Well-nourished well-developed young woman who is audibly wheezing Head normocephalic atraumatic Eyes PERRLA EOMI sclera clear Mouth mucous membranes moist tongue well papillated tongue button piercing in place neck supple no JVD masses nodes or bruits chest diffuse inspiratory and expiratory wheezing no rales or rhonchi cardiovascular regular rhythm no gallop rub or murmur however the patient is exquisitely tender over the left lower mid chest so much so that placing the stethoscope is painful Results 04/06/18 21:05 04/06/18 21:05 Cardiac Enzymes 04/06/18 04/07/18 04/07/18 Range/Units 21:05 00:20 03:00 AST 15 (15-37) U/L CK-MB (CK-2) 1.8 (0.5-3.6) ng/mL Troponin I Less than 0.02 L Less than 0.02 L Less than 0.02 L (0.02-0.05) ng/mL Coagulation 04/06/18 Range/Units 21:05 PT 10.0 (9.8-11.6) sec APTT 29.3 (23.4-31.7) sec CBC 04/06/18 Range/Units 21:05 WBC 9.3 (4.0-11.0) th/mm3 RBC 4.51 (4.00-5.30) mil/mm3 Hgb 12.3 (11.6-15.3) gm/dL Hct 37.8 (35.0-46.0) % Plt Count 332 (150-450) th/mm3 Neut # (Auto) 5.3 (1.8-7.7) th/mm3 Lymph # (Auto) 3.0 (1.0-4.8) th/mm3 [place] # (Auto) 0.7 (0.0-0.9) th/mm3 Eos # (Auto) 0.1 (0.0-0.4) th/mm3 Baso # (Auto) 0.1 (0.0-0.2) th/mm3 Comprehensive Metabolic Panel 04/06/18 Range/Units 21:05 Sodium 141 (136-145) meq/L Potassium 4.1 (3.5-5.1) meq/L Chloride 108 H (98-107) meq/L Carbon Dioxide 27.5 (21.0-32.0) meq/L BUN 16 (7-18) mg/dL Creatinine 0.86 (0.50-1.00) mg/dL Calcium 8.6 (8.5-10.1) mg/dL AST 15 (15-37) U/L ALT 24 (10-53) U/L Alkaline Phosphatase 60 (45-117) U/L Total Protein 7.8 (6.4-8.2) g/dL Albumin 3.8 (3.4-5.0) g/dL Intake and Output 04/06/18 04/07/18 04/07/18 23:59 06:59 14:59 Other: # Voids Weight - Imaging and Cardiology Imaging: Impressions Chest X-Ray 04/06/18 21:00 CONCLUSION: No evidence of acute cardiopulmonary disease. Assessment and Plan - Assessment (1) Atypical chest pain Code(s): R07.89 - Other chest pain Status: Acute (2) Asthma Code(s): J45.909 - Unspecified asthma, uncomplicated Status: Chronic Plan: This patient is having an acute episode of asthma will be treated with breathing treatments. She has not a candidate for further stress testing evaluation at this time until her breathing status is stabilized. She has already ruled out for ACS once her breathing is stable she will be discharged to further outpatient follow-up. Is some discussion regarding her options to obtain outpatient follow-up including the [facility], [facility], or private physician. Emphasized to her the importance to follow through. (3) Tobacco use Code(s): Z72.0 - Tobacco use Status: Chronic
[2018-04-07] MEDS ORDERED: Hydrocortisone Sod Succinate 100 MG Vial IV.PUSH ONE (09:56)
[2018-04-07] MEDS ORDERED: Ketorolac Inj 30 MG/ML (IVP) Vial IV.PUSH ONE (10:00)
--- NOTE | 2018-04-07 10:07 | ECG ---
Date Performed: 04/07/2018 Time Performed: 03:02:47 PTAGE: 32 years EKG: SINUS BRADYCARDIA WITH SINUS ARRHYTHMIA BORDERLINE ECG No change PREVIOUS TRACING : 04/07/2018 00.10 DOCTOR: Will Manzano Interpretating Date/Time 04/07/2018 10:07:13
--- NOTE | 2018-04-07 10:08 | ECG ---
Date Performed: 04/07/2018 Time Performed: 00:10:52 PTAGE: 32 years EKG: SINUS BRADYCARDIA BORDERLINE ECG PREVIOUS TRACING : 04/06/2018 20.23 DOCTOR: Will Manzano Interpretating Date/Time 04/07/2018 10:08:11
[2018-04-07 11:20] VITALS: BP 103/60; PULSE 65; RESP 16; TEMP 97.9; O2SAT 98
--- NOTE | 2018-04-07 23:09 | ECG ---
Date Performed: 04/06/2018 Time Performed: 20:23:08 PTAGE: 32 years EKG: Sinus rhythm NORMAL ECG PREVIOUS TRACING : 05/30/2017 02.33 Since the previous tracing, no significant change noted DOCTOR: Pedro Rivero Interpretating Date/Time 04/07/2018 23:08:25
== END 2018-04-07 13:58 | disposition home or self-care (01) ==
LOC: NEDA 20:13 → NEPC 20:13 → NEPFCDU 23:14
PROVIDERS: ADMIT Internal Medicine Interventional Cardiology; ATTEND Internal Medicine Interventional Cardiology